=== PATIENT | female | born 1980 ===

== ENCOUNTER 2025-02-17 13:46 | Emergency (ER) | payer OTHER, SELFPAY ==
[2025-02-17 13:50] VITALS: BP 121/79; PULSE 97; RESP 20; TEMP 36.7; O2SAT 98; BMI 37.3
--- NOTE | 2025-02-17 16:13 | ED.GENADULT ---
HPI - General Adult General Chief complaint: Nausea/Vomiting Stated complaint: vomiting, anxiety Time Seen by Provider: 02/17/25 13:59 History of Present Illness HPI narrative: Pt reports hx of known cyclic vomiting. States current episode has been ongoing for 2 weeks. Went to ER in [facility] a few days ago for this. Then was seen at up in [facility] as well. Has an appt tomorrow with as well. Pt is very anxious and continues to have episodes of vomiting and anxiety. Symptoms only relieved by hot showers. Pt states she was given Xanax by which does help with her symptoms. 44-year-old woman presenting to the emergency department with concern of vomiting. Actually has not vomited today but still does not feel well. History of cyclic vomiting. Was initiated on BuSpar and alprazolam and duloxetine. hydroxyzine as well. 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 She has also had amputation now all of the left lower leg. She is getting use to these prosthetics. Has had to move now to [facility] area. Was seen at [facility] this last week for recurrent vomiting. She also gets severe epigastric pain which she associates with anxiety. She says is not the typical kind of pain. Admits that treating her anxiety would probably help pain and nausea. Today has only been dry heaving and overall improved in this regard better than she has been over the last couple of weeks. When she was seen in [facility] few days ago did have evaluation of her liver/gallbladder which was negative she reports. This did also include an ultrasound. Does have a long history of recurrent vomiting with extensive imaging without findings she reports Concurrently en route with significant other to [employer] her dog in [place]. Stopped here due to symptoms. Related Data Home Medications ?Medication ?Instructions ?Recorded ?Confirmed aripiprazole .ROUTE 02/17/25 buspirone .ROUTE 02/17/25 fluoxetine .ROUTE 02/17/25 lisinopril .ROUTE 02/17/25 metoprolol tartrate .ROUTE 02/17/25 omeprazole .ROUTE 02/17/25 Allergies Allergy/AdvReac Type Severity Reaction Status Date / Time acetaminophen (From Tylenol) Allergy Severe Anaphylaxis Verified 02/17/25 13:54 sulfamethoxazole (From Allergy Mild Verified 02/17/25 13:54 Bactrim) trimethoprim (From Bactrim) Allergy Mild Verified 02/17/25 13:54 Review of Systems Status of ROS: Reports: 6 or more systems reviewed and unremarkable except as noted in History and below Exam Narrative: Exam Narrative: Pleasant. Appears uncomfortable. Skin is warm and dry. She has a faint speckling to papular rash scattered over her torso. Some of this is on the thighs as well. Not particularly itchy but has been of concern. Bilateral [id number]-[id number] amputations. Abdomen is overweight soft. Tender mid abdomen, epigastrium. Lungs are clear. Heart in elevated rate and regular rhythm. Const: Vital Signs, click to edit/add: Vital Signs - 24 hr 02/17/25 13:50 Temperature 98.0 F Pulse Rate [Pulse Oximeter] 97 Respiratory Rate 20 Blood Pressure [Ri ght Upper Arm] 121/79 Pulse Oximetry 98 Oxygen Delivery Me thod Room Air Documenting provider has reviewed patient's vital signs: yes Course Vital Signs Vital signs: Initial Vital Signs Temperature 98.0 F 02/17/25 13:50 Temperature Source Temporal Artery Scan 02/17/25 13:50 Pulse Rate 97 02/17/25 13:50 Respiratory Rate 20 02/17/25 13:50 Blood Pressure 121/79 02/17/25 13:50 Blood Pressure Mean 93 02/17/25 13:50 Blood Pressure Position Sitting 02/17/25 13:50 Pulse Oximetry 98 02/17/25 13:50 Oxygen Delivery Method Room Air 02/17/25 13:50 Vital Signs Temperature 98.0 F 02/17/25 13:50 Pulse Rate 97 02/17/25 13:50 Respiratory Rate 20 02/17/25 13:50 Blood Pressure 121/79 02/17/25 13:50 Pulse Oximetry 98 02/17/25 13:50 Oxygen Delivery Method Room Air 02/17/25 13:50 Temperature 98.0 F 02/17/25 19:32 Pulse Rate 85 02/17/25 19:32 Respiratory Rate 20 02/17/25 19:32 Blood Pressure 118/84 02/17/25 19:32 Pulse Oximetry 98 02/17/25 19:31 Oxygen Delivery Method Room Air 02/17/25 19:31 Medications Administered Medications: Discontinued Medications Generic Name Dose Route Start Last Admin Trade Name Anabel PRN Reason Stop Dose Admin Sodium Chloride 1,000 mls @ 1,000 mls/hr 02/17/25 16:15 02/17/25 18:51 0.9 % Sodium Chloride 1000 Ml IV 02/17/25 17:14 Infused .Q1H ONE Infusion Lactated Ringer's 1,000 mls @ 1,000 mls/hr 02/17/25 17:19 02/17/25 18:51 Lactated Ringers 1000 Ml IV 02/17/25 18:18 Infused .Q1H ONE Infusion Ketorolac Tromethamine 30 mg 02/17/25 18:36 02/17/25 18:52 Ketorolac 30 Mg/Ml Inj IVP 02/17/25 18:37 30 mg ONCE ONE Administration Lidocaine/Aluminum/Magnesium/Simeth 30 ml 02/17/25 18:41 02/17/25 18:50 Gi Cocktail (Visc Lido/Antacid) 30 Ml PO 02/17/25 18:42 30 ml ONCE ONE Administration Lorazepam 1 mg 02/17/25 17:19 02/17/25 17:44 Lorazepam 1 Mg Tablet PO 02/17/25 17:20 1 mg ONCE ONE Administration Lorazepam 0.5 mg 02/17/25 18:41 02/17/25 18:51 Lorazepam 0.5 Mg Tablet PO 02/17/25 18:42 0.5 mg ONCE ONE Administration Olanzapine 5 mg 02/17/25 17:19 02/17/25 17:44 Olanzapine 5 Mg/Ml Inj IVP 02/17/25 17:20 5 mg ONCE ONE Administration Ondansetron HCl 4 mg 02/17/25 16:15 02/17/25 17:44 Ondansetron 2 Mg/Ml Inj IVP 02/17/25 16:16 4 mg ONCE ONE Administration Medical Decision Making [facility] Narrative Medical decision making narrative: Nonspecific rash but I wonder if might be stress or heat related. Can certainly help with symptoms here. Without extensive past medical would consider further evaluation, imaging or even cardiac workup. Symptoms sound to be known and typical. Will check chemistries though as sounds like these have been occasionally off. Initiated IV. Received IV fluids. Zofran, olanzapine, lorazepam. Was improved and then pain returned. Was given GI cocktail ketorolac and lorazepam. Overall improved during time in emergency department the still with some acceptable level of symptoms it appears Labs are reassuring. See patient discharge plan for further discussion Stay well-hydrated. Try to take your pills with a little bit of food in most cases. Slow advance of diet over the next 24-36 hours. Diluted juices, soup broth, rice, toast, crackers. Hopefully your stress can settle soon. Be seen for marked increase in persistent pain, intractable vomiting, associated fever. Prescribing you some Zofran for nausea from [facility]. Lab Data Lab results reviewed: Yes I reviewed the patient's lab results Labs: Lab Results 02/17/25 Range/Units 16:26 Sodium 132 L (135-149) mmol/L Potassium 3.3 L (3.6-5.1) mmol/L Chloride 91 L (96-114) mmol/L Carbon Dioxide 31 (20-32) mmol/L Anion Gap 10 (7-15) mEq/L BUN 23 (5-24) mg/dL Creatinine 1.2 (0.5-1.5) mg/dL Estimated Creat Clear 59.09 Estimated GFR 57 ml/min Glucose 175 H (60-115) mg/dL Calcium 9.9 (8.4-10.6) mg/dL Magnesium 2.0 (1.5-2.6) mg/dL Discharge Plan Discharge Clinical Impression: Hyperemesis, Abdominal pain Patient Disposition: Home w/ Parent or Adult Condition: Improved Additional Instructions: Stay well-hydrated. Try to take your pills with a little bit of food in most cases. Slow advance of diet over the next 24-36 hours. Diluted juices, soup broth, rice, toast, crackers. Hopefully your stress can settle soon. Be seen for marked increase in persistent pain, intractable vomiting, associated fever. Prescribing you some Zofran for nausea from [facility]. Prescriptions: No Action lisinopril .ROUTE metoprolol tartrate .ROUTE aripiprazole [Abilify] .ROUTE buspirone [BuSpar] .ROUTE fluoxetine .ROUTE omeprazole .ROUTE Follow Up/Referrals: Provider,Not a Local [Primary Care Provider, Family Practice] Stand Alone Forms: MyHealth Info Instructions
--- OUTSIDE RECORDS SUMMARY | 2025-02-17 16:41 | XMS_ITS | Clinical Summary ---
Author Organization [facility] Address [address], [place] [address] Care Team Providers Care Polisher Apprentice Name Role Phone Needs Pcp, Assignment Primary Care Provider Source Comments You are receiving this document as you are listed as the primary care provider,follow-up provider, or the patient has been referred to you for consultation.This is in compliance with the Medicare and[facility] EHR Incentive Program,which states Providers who transition their patient to another setting of careor provider of care or refers their patient to another provider of care shouldprovide summary care record for each transition of care or referral. allGreenup Allergies Active Allergy Reactions Criticality Noted Date Comments Acetaminophen Anaphylaxis High 02/08/2025 Sulfamethoxazole-Trimethoprim Itching 2024 Medications metoprolol tartrate (LOPRESSOR) 25 MG tablet Take 1 Tablet (25 mg) by mouth two times a day. Active lisinopril (ZESTRIL) 10 MG tablet Take 1 Tablet (10 mg) by mouth daily. Active omeprazole (PRILOSEC) 40 MG capsule Take 1 Capsule (40 mg) by mouth daily. Take 1 hour before a meal. Active atorvastatin (LIPITOR) 20 MG tablet Take 1 Tablet (20 mg) by mouth daily. Active hydrOXYzine HCl (ATARAX) 25 MG tablet Take 1 Tablet (25 mg) by mouth three times a day. Active DULoxetine (CYMBALTA) 60 MG delayed release capsule Take 1 Capsule (60 mg) by mouth daily. Active ARIPiprazole (ABILIFY) 2 MG tablet Take 1 Tablet (2 mg) by mouth daily. Active calcium carbonate 600 MG tablet Take 2 Tablets (1,200 mg) by mouth daily. Active multivitamin with minerals tablet Take 1 Tablet by mouth daily. Active traMADol (ULTRAM) 50 MG tablet Take 1 Tablet (50 mg) by mouth every 6 hours as needed for Pain. Active baclofen (LIORESAL) 10 MG tablet Take 1 Tablet (10 mg) by mouth two times daily as needed. Active Imipramine Pamoate (TOFRANIL-PM) 150 MG capsule Take 1 Capsule (150 mg) by mouth every evening. Active busPIRone (BUSPAR) 10 MG tablet Take 1 Tablet (10 mg) by mouth two times a day. 60 Tablet 1 02/09/2025 1:37 PM CDT 02/09/2025 Active ALPRAZolam (XANAX) 0.5 MG tabletIndicatio ns:ANTONIO (generalized anxiety disorder) (HRC) Take 1 Tablet (0.5 mg) by mouth two times daily as needed for Anxiety. 15 Tablet 02/14/2025 Active Active Problems Problem Noted Date Diagnosed Date Dehydration 02/08/2025 Abdominal pain, generalized 02/08/2025 Endometrial polyp 02/07/2024 Overview (02/14/2025): Noted on US - 0.9 x 0.5 cm. Prior polyp removed with hysteroscopic D&C 06/2015, Dr Rangel Obesity, Class II, BMI 35-39.9 01/15/2024 Human papillomavirus (HPV) t ype 16 DNA detected in cervical specimen 01/07/2024 Menorrhagia with regular cycle 01/07/2024 Post traumatic stress disorder (PTSD) 11/04/2023 Status post bariatric surgery 09/03/2023 S/P laparoscopic sleeve gastrectomy 09/03/2023 Postgastrectomy malabsorption 09/03/2023 Below knee amputation, traumatic 12/18/2022 History of right below knee amputation Psychological factors affecting morbid obesity 0 12/18/2022 Gastroesophageal reflux disease without esophagi tis 01/23/2022 Uterine fibroid 01/23/2022 Overview (02/14/2025): US 02/07/24 right sided IM fibroid - 3.5 x 2.7 x 3.1 cm History of left below knee amputation 11/02/2020 Type 2 diabetes mellitus wit h foot ulcer, without long-term current use of insulin 03/12/2019 ANTONIO (generalized anxiety disorder) 02/19/2019 Stress incontinence, female 02/19/2019 Type 2 diabetes, controlled, with neuropathy 09/2018 Major depressive disorder, recurrent episode, mi ld 06/21/2015 Chronic inflammatory demyeli nating disease of peripheral nervous system and central nervous system 05/09/2014 Essential hypertension 10/06/2012 Overview (02/08/2025): Identified By: Maryjane Smith Encounters Date Type Department Care Team Description 02/14/2025 11:40 AM CDT Lab Visit [facility] [address] [facility] [place], [place] [id number] Abdominal pain, unspecified abdominal location; Nausea and vomiting, unspecified vomiting type 02/14/2025 11:20 AM CDT Office Visit [facility] [place] [id number] [facility]. [place], [place] [id number] Mike Michele MD ANTONIO (generalized anxiety disorder) ([facility]); Abdominal pain, unspecified abdominal location; Nausea and vomiting, unspecified vomiting type; Hyponatremia; Hypokalemia; Thrombocytosis; Elevated serum creatinine 02/14/2025 Telephone [facility] [address] [place], [place] [phone] Needs Pcp, Assignment LAB RESULTS 02/14/2025 Nurse Triage [facility] [address] [place] [address] Needs Pcp, Assignment ANXIETY 02/08/2025 5:45 AM CDT - 02/09/2025 1:34 PM CDT Hospital Encounter [facility] [address] [place] [address] Jagdeep Gurrola MD Nguyen, Catherine Q, DO Daleiden, Christian M, MD ANTONIO (generalized anxiety disorder) (HRC) (Primary Dx); Uterine leiomyoma, unspecified location; Lower abdominal pain; Vomiting, unspecified vomiting type, unspecified whether nausea present Discharge Disposition: Home from Last 3 Months Social History Tobacco Use Types Packs/Day Years Used Date Smoking Tobacco: Never Assessed Humiliation, Afraid, Rape, and Kick questionnair e Answer Date Recorded Within the last year, have y ou been afraid of your partner or ex-partner? No 02/08/2025 Within the last year, have y ou been humiliated or emotionally abused in other ways by your partner or ex-partner? No Within the last year, have y ou been kicked, hit, slapped, or otherwise physically hurt by your partner or ex-partner? No 02/08/2025 Within the last year, have y ou been raped or forced to have any kind of sexual activity by your partner or ex-partner? No 02/08/2025 Comments Unknown Sex and Gender Information Value Date Recorded Sex Assigned at Not on file Legal Sex Female 5:45 AM CDT Gender Identity Not on file Sexual Orientation Not on file Last Filed Vital Signs Vital Sign Reading Time Taken Comments Blood Pressure 127/72 02/14/2025 11:12 AM CDT Pulse 95 02/14/2025 11:12 AM CDT Temperature 36.3 C (97.3 F) 02/14/2025 11:12 AM CDT Respiratory Rate 20 02/14/2025 11:12 AM CDT Oxygen Saturation 99% 02/14/2025 11:12 AM CDT Inhaled Oxygen Concentration - - Weight - - Height - - Body Mass Index - - Plan of Treatment Upcoming Encounters Date Type Department Care Team (Late st Contact Info) Description 02/22/2025 8:00 AM CDT Appointment [place] [id number] [facility] Medicine [address] [facility] [place], [place] [phone] Arlene Hines, RUBBER WORKER, [employer] [address] [place] [address] Health Maintenance Due Date Last Done Comments Cervical Cancer Screening Due 1978 Colon Cancer Screening Plan Due 1978 Diabetes: Eye Exam 1978 Diabetes: Foot Exam 1978 Diabetes: Lipid Panel 1978 Diabetes: Urine Microalbumin 1978 Hep C Screening (Preventive Services) 1978 HIV Screening (Preventive Services) 1994 Adult Preventive Visit 1996 HepB Vaccine (1) 1997 COVID-19 Vaccine (4 - season) 2024 01/23/2022, 06/06/2021, 05/12/2021 Pneumococcal Vaccine (3 of 3 - PCV) 11/06/2024 11/06/2019, 03/12/2019 Influenza Vaccine (Season Ended) 2025 08/07/2020, 10/28/2019 Diabetes: HGBA1C 08/12/2025 02/09/2025, 07/01/2024 Mammogram 08/19/2025 08/19/2024, 07/07, 04/17/2022, Additional history exists Diabetes: Creatinine 02/14/2026 02/14/2025, 02/09/2025, 02/08/2025 DTaP/Tdap/Td Vaccine (8 - Tdap) 06/23/2028 06/23/2018, 10/03/2007, 07/09/2003, Additional history exists Zoster/Shingles Vaccine (1 of 2) 2028 IPV (Polio) Vaccine Completed 06/29/1983, 04/14/1980, 04/07/1979, Additional history exists HepA Vaccine Aged Out No longer eligi ble based on patient's age to complete this topic Hib Vaccine Aged Out No longer eligi ble based on patient's age to complete this topic MCV4 Vaccine Aged Out No longer eligi ble based on patient's age to complete this topic Meningococcal B Vaccine Aged Out No l onger eligible based on patient's age to complete this topic Procedures Procedure Name Priority Date/Time Associated Diagnosis Comments RBC AND PLATELET MORPHOLOGY STAT 02/14/2025 11:39 AM CDT Abdominal pain, unspecified abdominal location Nausea and vomiting, unspecified vomiting type COMPLETE BLOOD COUNT-W/DIFF STAT 02/14/2025 11:39 AM CDT Abdominal pain, unspecified abdominal location Nausea and vomiting, unspecified vomiting type BASIC METABOLIC PANEL STAT 02/14/2025 11:39 AM CDT Abdominal pain, unspecified abdominal location Nausea and vomiting, unspecified vomiting type CBC AND DIFFERENTIAL PANEL STAT 02/14/2025 11:39 AM CDT Abdominal pain, unspecified abdominal location Nausea and vomiting, unspecified vomiting type GLUCOSE, WHOLE BLOOD POCT Routine 02/09/2025 7:59 AM CDT HGB A1C Add-On 02/09/2025 6:29 AM CDT COMPLETE BLOOD COUNT-NO DIFF Routine 02/09/2025 6:29 AM CDT BASIC METABOLIC PANEL Routine 02/09/2025 6:29 AM CDT BLOOD CULTURE STAT 02/08/2025 3:31 PM CDT BLOOD CULTURE STAT 02/08/2025 3:31 PM CDT MOLECULAR BLOOD CULTURE IDENTIFICATION STAT 02/08/2025 2:39 PM CDT BLOOD CULTURE Routine 02/08/2025 2:39 PM CDT BLOOD CULTURE Routine 02/08/2025 2:39 PM CDT D DIMER, QUANTITATIVE Routine 02/08/2025 2:39 PM CDT PROCALCITONIN Routine 02/08/2025 2:39 PM CDT US PELVIC COMPLETE WO EV STAT 02/08/2025 11:19 AM CDT US ABD LTD GALLBLADDER ONLY STAT 02/08/2025 11:13 AM CDT LACTATE 2 HOUR Specified Time 02/08/2025 8:[address] ABD PELVIS W IV CONT ONLY STAT 02/08/2025 7:42 AM CDT EXTRA BLUE TOP TUBE Routine 02/08/2025 6 :32 AM CDT BRAIN NATRIURETIC PEPTIDE (BNP) STAT Add-On 02/08/2025 6:31 AM CDT HS-TROPONIN I (NO REFLEX) STAT Add-On 02/08/2025 6:31 AM CDT LACTATE REFLEX PANEL Add-On 02/08/2025 6:31 AM CDT HCG,QUALITATIVE, SERUM STAT 02/08/2025 6:31 AM CDT COMPLETE BLOOD COUNT-W/DIFF STAT 02/08/2025 6:31 AM CDT LIPASE STAT 02/08/2025 6:31 AM CDT COMPREHENSIVE METABOLIC PANEL STAT 02/08/2025 6:31 AM CDT CBC AND DIFFERENTIAL PANEL STAT 02/08/2025 6:31 AM CDT ECG 12 LEAD INPATIENT STAT 02/08/2025 6:03 AM CDT UA CONDITIONAL UC STAT Add-On 02/08/2025 5:5 2 AM CDT EXTRA URINE TUBE Routine 02/08/2025 5:52 AM CDT from Last 3 Months Results * (ABNORMAL) Morphology-RBC and Platelet (02/14/2025 11:39 AM CDT) RBC Morphology Reviewed 02/14/2025 12:03 PM CDT [facility] [address] LABORATORY Platelet Estimate Increased(A) Adequate 02/14/2025 12:03 PM CDT [place] [address] [facility]ORY Blood Venipuncture / Unknown 02/14/2025 11:39 AM CDT 02/14/2025 11:39 AM CDT Mike Michele MD LAB_1 Final Result [place] [address] [facility] [address] [place] [address], [facility] * (ABNORMAL) Complete Blood Count-W/Diff (02/14/2025 11:39 AM CDT) Only the most recent of2 resultswithin the time period is included. WBC 14.6(H) 3.5 - 10.5 x10(9)/L 02/14/2025 12:03 PM T [place] [address] LAB[facility]ATORY RBC 4.68 3.90 - 5.03 x10(12)/L 02/14/2025 12:03 PM [place] [address] [facility]ORY Hemoglobin 14.2 12.0 - 15.5 g/dL 02/14/2025 12:03 PM [place] [address] [facility] HCT 40.2 34.9 - 44.5 % 02/14/2025 12:03 PM [place] [address] [facility] MCV 85.9 80.0 - 100.0 fL 02/14/2025 12:03 PM [place] [address] [facility] MCH 30.3 27.6 - 33.3 pg 02/14/2025 12:03 PM [place] [address] [facility] MCHC 35.3(H) 31.5 - 35.2 g/dL 02/14/2025 12:03 PM [place] [address] [facility] RDW 12.1 11.9 - 15.5 % 02/14/2025 12:03 PM [place] [address] [facility] Platelets 544(H) 150 - 450 x10(9)/L 02/14/2025 12:03 PM [place] [address] [facility] Automated NRBC 0 <=0 /100 WBC 02/14/2025 12:03 PM [place] [address] [facility] Neutrophil Absolute 9.7(H) 1.7 - 7.0 10(9)/L 02/14/2025 12:03 PM T [place] [address] [facility] Lymphocyte Absolute 2.5 1.0 - 4.8 10(9)/L 02/14/2025 12:03 PM T [place] [address] [facility] Monocyte Absolute 2.0(H) 0.2 - 0.9 10(9)/L 02/14/2025 12:03 PM [place] [address] [facility] Eosinophil Absolute 0.2 0.0 - 0.5 10(9)/L 02/14/2025 12:03 PM [place] [address] [facility] Basophil Absolute 0.1 0.0 - 0.3 10(9)/L 02/14/2025 12:03 PM [place] [address] [facility] Immature Granulocyte % 0.5 0.0 - 0.5 % 02/14/2025 12:03 PM [place] [address] [facility] Blood Venipuncture / Unknown 02/14/2025 11:39 AM CDT 02/14/2025 11:39 AM CDT us Mike Michele MD LAB_1 Final Result Performing Organization Address City/State/[facility] Co de Phone Number [address] [address], [facility] * (ABNORMAL) Basic Metabolic Panel (02/14/2025 11:39 AM CDT) Only the most recent of2 resultswithin the time period is included. Sodium 131(L) 136 - 145 mmol/L 02/14/2025 11:57 AM [place] [address] [facility] Potassium 3.3(L) 3.5 - 5.1 mmol/L 02/14/2025 11:57 AM [place] [address] [facility] Chloride 94(L) 98 - 109 mmol/L 02/14/2025 11:57 AM [place] [address] [facility] CO2 23 20 - 29 mmol/L 02/14/2025 11:57 AM [place] [address] [facility] Anion Gap 14 6 - 16 mmol/L 02/14/2025 11:57 AM CDT [place] [address] [facility] Calcium 10.5(H) 8.4 - 10.4 mg/dL 02/14/2025 11:57 AM CDT [place] [address] [facility] Comment:Low serum albumin ma y artificially lower total calcium, without impacting ionized calcium concentrations. If patient has or is at risk for hypoalbuminemia, consider ionized serum calcium to more accurately assess calcium status. BUN 15 7 - 26 mg/dL 02/14/2025 11:57 AM CDT [place] [address] [facility] Creatinine 1.73(H) 0.55 - 1.02 mg/dL 02/14/2025 11:57 AM CDT [place] [address] [facility] Glucose 194(H) 70 - 100 mg/dL 02/14/2025 11:57 AM T [place] [address] [facility] Comment:The given reference range is for the fasting state. Non-fasting reference range for glucose is 70 - 180 mg/dL. GFR, Estimated 37(L) >60 mL/min/1. 73m2 02/14/2025 11:57 AM T [place] [address] [facility] Hours Fasting 0.1 8 - 12 Hours 02/14/2025 11:57 AM T [place] [address] [facility] Comment:Lab unable to obtain patient's fasting status at time of specimen collection. Blood Venipuncture / Unknown 02/14/2025 11:39 AM CDT 02/14/2025 11:39 AM CDT us Mike Michele MD LAB_1 Final Result Performing Organization Address City/State/[facility] Phone Number [place] [address] [facility] [place] [address], [facility] * (ABNORMAL) Glucose, Whole Blood POCT (02/09/2025 7:59 AM CDT) Glucose, Whole Blood 258(H) 70 - 180 mg/dL 02/09/2025 8:00 AM CDT [facility] Performing Location [place] 4W 02/09/2025 8:00 AM CDT [facility] Blood 02/09/2025 7:59 AM CDT 02/09/2025 8:00 AM CDT us Juan Hernandez MD LAB_1 Final Re sult Performing Organization Address [facility] Co de Phone Number [facility] [address] * (ABNORMAL) Complete Blood Count-No Diff (02/09/2025 6:29 AM CDT) WBC 11.9(H) 3.5 - 10.5 x10(9)/L 02/09/2025 7:20 AM CDT [facility] RBC 4.19 3.90 - 5.03 x10(12)/L 02/09/2025 7:20 AM CDT [facility] Hemoglobin 12.7 12.0 - 15.5 g/dL 02/09/2025 7:20 AM CDT [facility] HCT 37.8 34.9 - 44.5 % 02/09/2025 7:20 AM CDT [facility] MCV 90.2 80.0 - 100.0 fL 02/09/2025 7:20 AM CDT [facility] MCH 30.3 27.6 - 33.3 pg 02/09/2025 7:20 AM CDT [facility] MCHC 33.6 31.5 - 35.2 g/dL 02/09/2025 7:20 AM CDT [facility] RDW 12.7 11.9 - 15.5 % 02/09/2025 7:20 AM CDT [facility] Platelets 382 150 - 450 x10(9)/L 02/09/2025 7:20 AM CDT [facility] Automated NRBC 0 <=0 /100 WBC 02/09/2025 7:20 AM CDT [facility] Blood Venipuncture / Unknown 02/09/2025 6:29 AM CDT 02/09/2025 7:15 AM CDT us Nasreen Rose DO LAB_1 Final Resu lt Performing Organization Address [facility]/ZIP Co de Phone Number [facility] [address] * (ABNORMAL) Hgb A1C (02/09/2025 6:29 AM CDT) Hemoglobin A1C 5.7(H) <=5.6 % 02/09/2025 10:31 AM CDT [facility] Estimated Average Glucose (Calc) 117 < 117 mg/dL 02/09/2025 10:31 AM CDT [facility] Comment:Estimated average gl ucose (eAG) converts A1c into glucose units (mg/dL) and estimates average glucose over the past approximately 3 months. The eAG reference interval (<117 mg/dL) corresponds to an A1c of <5.7%. Blood Venipuncture / Unknown 02/09/2025 6:29 AM CDT 02/09/2025 7:15 AM CDT Narrative [facility] - 02/09/2025 10:31 AM CDT For patients not previously diagnosed with diabetes: 5.7-6.4%: Increased risk for diabetes 6.5% and greater: Diagnostic for diabetes For patients diagnosed with diabetes: <8.0%: Goal of therapy for ages 18-75 Clinicians may recommend a higher or lower goal for specific individuals. us Juan Hernandez MD LAB_1 Final Re sult [facility] [address] * Blood Culture (02/08/2025 3:31 PM CDT) Only the most recent of2 resultswithin the time period is included. Blood Culture No Growth at 5 Days LAB ETEST METHOD 02/13/2025 10:02 PM CDT [facility] Blood VENIPUNCTURE / Unknown Venipuncture / Unknown 02/08/2025 3:31 PM CDT 02/08/2025 3:36 PM CDT Nasreen Rose DO LAB_1 Final Resu lt Performing Organization Address City/[facility]/[place] [address], [facility] * (ABNORMAL) Molecular Blood Culture Identification (02/08/2025 2:39 PM CDT) [facility] Molecular Identification Staphylococcus epidermidis Detected(A) (none) MOLECULAR BLOOD CULTURE IDENTIFICATION 3:00 PM CDT [facility] Blood VENIPUNCTURE / Unknown Venipuncture / Unknown 02/08/2025 2:39 PM CDT 02/08/2025 2:44 PM CDT Nasreen Rose DO LAB_1 Final Resu lt Performing Organization Address [facility]/ZIP Co de Phone Number [address] * Procalcitonin (02/08/2025 2:39 PM CDT) [facility] Procalcitonin 0.02 <=0.24 ng/mL 02/08/2025 3:33 PM CDT [facility] Blood Venipuncture / Unknown 02/08/2025 2:39 PM CDT 02/08/2025 2:44 PM CDT Narrative [facility] - 02/08/2025 3:33 PM CDT Suspected Lower Respiratory Tract Infection (Positive imaging and respiratory symptoms present): < 0.24: Suggests non-bacterial infection. 0.25-0.49: Bacterial infection possible. Consider causes of false elevations such as CKD. >= 0.50: Suggestive of bacterial infection. Consider causes of false elevations. Clinicians should use these results in conjunction with other laboratory findings and clinical signs. Nasreen Rose DO LAB_1 Final Resu lt [facility] [address] [place] [address], [facility] * D Dimer (02/08/2025 2:39 PM CDT) [facility] D Dimer, Quant <0.27 <=0.50 ug/mL FEU 02/08/2025 3:08 PM CDT [facility] Blood Venipuncture / Unknown 02/08/2025 2:39 PM CDT 02/08/2025 2:44 PM CDT Narrative [facility] - 02/08/2025 3:08 PM CDT A D-dimer level <=0.50 ug/mL FEU in a patient with a low clinical pretest probability for a 1st episode of DVT can rule out lower extremity DVT (rate of DVT in next 3 months < 2%). For patients greater than 50 years of age, the application of age-adjusted cut- off values for D-Dimer may increase the specificity without significant effect on sensitivity. The results in this laboratory are reported as ug/mL FEU. The calculation for age adjusted cut off in ug/mL FEU = age in years x 0.01 ug/mL FEU. For example, the cut off for a 76 year old male is 76 x 0.01 ug/mL FEU = <=0.76 ug/mL FEU. Increased D-dimer is seen in thromboembolism, DIC, liver disease, renal disease, cardiac infarct and failure, cancer, , stroke, infection, recent surgery, hemorrhage and age > 70 years. D-dimer levels decrease with anticoagulation therapy and increasing clot age. us Nasreen Dion SanchezRose DO LAB_1 Final Resu lt [facility] [address] [employer] [address] * US Pelvic Complete WO EV (02/08/2025 11:19 AM CDT) Anatomical Region Laterality Modality Pelvis Ultrasound 02/08/2025 10:5 4 AM CDT Impressions 02/08/2025 11:25 AM CDT 1. Uterine fibroid. Otherwise unremarkable. Narrative 02/08/2025 11:25 AM CDT COMPARISON: None. TECHNIQUE: Transabdominal imaging was performed. FINDINGS: Uterus: Measures 8.6 x 5.1 x 5.1 cm. Uterine Volume: 117.1 ml. There is a fibroid measuring up to 3.7 cm.. Endometrium: Measures up to 0.3 cm in thickness. Right Ovary: Measures 3.0 x 1.7 x 2.1 cm and appears unremarkable Right Ovary Blood Flow: Present. Left Ovary: Measures 4.0 x 2.2 x 3.4 cm and appears unremarkable Left Ovary Blood Flow: Present. Free Fluid: no significant free fluid. No suspicious adnexal masses. Procedure Note Yobani Cruz MD - 02/08/2025 COMPARISON: None. TECHNIQUE: Transabdominal imaging was performed. FINDINGS: Uterus: Measures 8.6 x 5.1 x 5.1 cm. Uterine Volume: 117.1 ml. There is afibroid measuring up to 3.7 cm.. Endometrium: Measures up to 0.3 cm in thickness. Right Ovary: Measures 3.0 x 1.7 x 2.1 cm and appears unremarkable Right Ovary Blood Flow: Present. Left Ovary: Measures 4.0 x 2.2 x 3.4 cm and appears unremarkable Left Ovary Blood Flow: Present. Free Fluid: no significant free fluid. No suspicious adnexal masses. IMPRESSION 1. Uterine fibroid. Otherwise unremarkable. us Jagdeep Gurrola MD RAD US Final Resu lt * US Abd Ltd Gallbladder Only (02/08/2025 11:13 AM CDT) Anatomical Region Laterality Modality Abdomen Ultrasound 02/08/2025 10:5 4 AM CDT Impressions 02/08/2025 11:24 AM CDT Gallbladder is unremarkable. Narrative 02/08/2025 11:24 AM CDT COMPARISON: CT abdomen scan done 02/08/2025. TECHNIQUE: Limited gallbladder ultrasound following a recent CT abdomen scan done. FINDINGS: GALLBLADDER: No stones, sludge, wall thickening, or pericholecystic fluid. SONOGRAPHIC RABAGO'S SIGN: Negative CBD:0.4 cm. Procedure Note Yobani Cruz MD - 02/08/2025 COMPARISON: CT abdomen scan done 02/08/2025. TECHNIQUE: Limited gallbladder ultrasound following a recent CT abdomenscan done. FINDINGS: GALLBLADDER: No stones, sludge, wall thickening, or pericholecysticfluid. SONOGRAPHIC RABAGO'S SIGN: Negative CBD:0.4 cm. IMPRESSION Gallbladder is unremarkable. us Jagdeep Gurrola MD RAD US Final Resu lt * Lactate 2 Hour (02/08/2025 8:27 AM CDT) Lactate, 2 Hour 1.6 0.5 - 2.0 mmol/L 02/08/2025 9:00 AM CDT [facility] Comment:Specimen grossly hem olyzed. Hemolysis may affect result. Blood Venipuncture / Unknown 02/08/2025 8:27 AM CDT 02/08/2025 8:35 AM CDT Narrative [facility] - 02/08/2025 9:00 AM CDT Reference range for healthy individuals when sepsis is not suspected is 0.5-2.2 mmol/L us Jagdeep Gurrola MD LAB_1 Final Resu lt [facility] [address] [address] * CT Abd Pelvis W IV Cont Only (02/08/2025 7:42 AM CDT) Anatomical Region Laterality Modality Abdomen, Pelvis Computed Tomogra phy 02/08/2025 7:29 AM CDT Impressions 02/08/2025 7:54 AM CDT 1. No acute findings in the abdomen or pelvis. 2. Punctate 2 mm nonobstructing calyceal calculus in the right kidney. Narrative 02/08/2025 7:54 AM CDT COMPARISON: None. TECHNIQUE: Images were obtained through the abdomen and pelvis following the administration of 100 mL IOHEXOL 350 MG/ML IV SOLN IV contrast. FINDINGS: LOWER CHEST: Unremarkable. LIVER: Minimal focal fatty infiltration in the liver along the false form ligament. GALLBLADDER AND BILIARY TREE: Unremarkable. No intrahepatic or extrahepatic biliary ductal dilation. PANCREAS: Unremarkable. SPLEEN: Unremarkable. ADRENALS: Unremarkable. KIDNEYS, URETERS, AND BLADDER: 1.0 cm cyst at the upper pole the right kidney. There are additional subcentimeter hypodensities in the right kidney which are too small to characterize and probably cysts. Punctate nonobstructing calyceal calculus in the right kidney. No hydronephrosis. Unremarkable bladder. VESSELS: No abdominal aortic aneurysm. BOWEL: Gastric sleeve changes. No dilated loops of bowel. No inflammatory changes or obstruction. No evidence for appendicitis. REPRODUCTIVE ORGANS: Intrauterine contraceptive device noted within the uterus centrally. Incidental 2.6 cm cyst in the left adnexa likely a dominant follicle. MESENTERY/PERITONEUM: No enlarged mesenteric lymph nodes. No ascites or free air. No focal fluid collection. RETROPERITONEUM: No adenopathy. ABDOMINAL WALL/SOFT TISSUES: Tiny fat-containing umbilical hernia. BONES: Unremarkable. Procedure Note Luiz Matias MD - 02/08/2025 COMPARISON: None. TECHNIQUE: Images were obtained through the abdomen and pelvis followingthe administration of 100 mL IOHEXOL 350 MG/ML IV SOLN IV contrast. FINDINGS: LOWER CHEST: Unremarkable. LIVER: Minimal focal fatty infiltration in the liver along the false formligament. GALLBLADDER AND BILIARY TREE: Unremarkable. No intrahepatic orextrahepatic biliary ductal dilation. PANCREAS: Unremarkable. SPLEEN: Unremarkable. ADRENALS: Unremarkable. KIDNEYS, URETERS, AND BLADDER: 1.0 cm cyst at the upper pole the rightkidney. There are additional subcentimeter hypodensities in the rightkidney which are too small to characterize and probably cysts. Punctatenonobstructing calyceal calculus in the right kidney. No hydronephrosis.Unremarkable bladder. VESSELS: No abdominal aortic aneurysm. BOWEL: Gastric sleeve changes. No dilated loops of bowel. No inflammatorychanges or obstruction. No evidence for appendicitis. REPRODUCTIVE ORGANS: Intrauterine contraceptive device noted within theuterus centrally. Incidental 2.6 cm cyst in the left adnexa likely adominant follicle. MESENTERY/PERITONEUM: No enlarged mesenteric lymph nodes. No ascites orfree air. No focal fluid collection. RETROPERITONEUM: No adenopathy. ABDOMINAL WALL/SOFT TISSUES: Tiny fat-containing umbilical hernia. BONES: Unremarkable. IMPRESSION 1. No acute findings in the abdomen or pelvis. 2. Punctate 2 mm nonobstructing calyceal calculus in the right kidney. us Jagdeep Gurrola MD RAD CT Final Resu lt * Extra Blue top tube (02/08/2025 6:32 AM CDT) Extra Blue Top Drawn Specimen will be held for 24 hours 02/08/2025 8:00 AM CDT [facility] Blood Venipuncture / Unknown 02/08/2025 6:32 AM CDT 02/08/2025 6:36 AM CDT us Jagdeep Gurrola MD LAB_1 Final Resu lt Performing Organization Address [facility] Phone Number [facility] [address] [place] [address] * (ABNORMAL) Lactate Reflex Panel (02/08/2025 6:31 AM CDT) Pathologist [facility] Lactate 2.3(H) 0.5 - 2.0 mmol/L 02/08/2025 7:14 AM CDT [facility] Blood Venipuncture / Unknown 02/08/2025 6:31 AM CDT 02/08/2025 6:36 AM CDT Narrative [facility] - 02/08/2025 7:14 AM CDT Reference range for healthy individuals when sepsis is not suspected is 0.5-2.2 mmol/L us Jagdeep Gurrola MD LAB_1 Final Resu Performing Organization Address [facility] Phone Number [facility] [address] [place] [address] * hs-troponin i (no reflex) (02/08/2025 6:31 AM CDT) [facility] hs-troponin i 3 <=14 ng/L 02/08/2025 7:25 AM CDT [facility] Blood Venipuncture / Unknown 02/08/2025 6:31 AM CDT 02/08/2025 6:36 AM CDT us Jagdeep Gurrola MD LAB_1 Final Resu Performing Organization Address [facility] de Phone Number [facility] [address] [place] [address] * B-Type Natriuretic Peptide (02/08/2025 6:31 AM CDT) Pathologist [facility] B Type Natr. Peptide 11 <=99 pg/mL 02/08/2025 9:48 AM CDT [facility] Blood Venipuncture / Unknown 02/08/2025 6:31 AM CDT 02/08/2025 6:36 AM CDT us Jagdeep Gurrola MD LAB_1 Final Resu lt [facility] [address] [employer] [address] * (ABNORMAL) Comp Metabolic Panel (02/08/2025 6:31 AM CDT) Sodium 133(L) 136 - 145 mmol/L 02/08/2025 7:08 AM CDT [facility] Potassium 3.7 3.5 - 5.1 mmol/L 02/08/2025 7:08 AM CDT [facility] Chloride 94(L) 98 - 109 mmol/L 02/08/2025 7:08 AM CDT [facility] CO2 24 20 - 29 mmol/L 02/08/2025 7:08 AM CDT [facility] Anion Gap 15 6 - 16 mmol/L 02/08/2025 7:08 AM CDT [facility] Calcium 10.9(H) 8.4 - 10.4 mg/dL 02/08/2025 7:08 AM CDT [facility] Comment:Low serum albumin ma y artificially lower total calcium, without impacting ionized calcium concentrations. If patient has or is at risk for hypoalbuminemia, consider ionized serum calcium to more accurately assess calcium status. BUN 15 7 - 26 mg/dL 02/08/2025 7:08 AM CDT [facility] Creatinine 0.95 0.55 - 1.02 mg/dL 02/08/2025 7:08 AM CDT [facility] Alkaline Phosphatase 98 40 - 150 U/L 02/08/2025 7:08 AM CDT [facility] AST (SGOT) 37 10 - 40 U/L 02/08/2025 7:08 AM CDT [facility] ALT (SGPT) 40 0 - 55 U/L 02/08/2025 7:08 AM CDT [facility] Bilirubin, Total 1.3(H) 0.2 - 1.2 mg/dL 02/08/2025 7:08 AM CDT [facility] Protein, Total 9.1(H) 6.4 - 8.3 g/dL 02/08/2025 7:08 AM CDT [facility] Albumin 4.8 3.5 - 5.0 g/dL 02/08/2025 7:08 AM CDT [facility] Glucose 221(H) 70 - 100 mg/dL 02/08/2025 7:08 AM CDT [facility] Comment:The given reference range is for the fasting state. Non-fasting reference range for glucose is 70 - 180 mg/dL. GFR, Estimated >60 >60 mL/min/1. 73m2 02/08/2025 7:08 AM CDT [facility] Blood Venipuncture / Unknown 02/08/2025 6:31 AM CDT 02/08/2025 6:36 AM CDT Jagdeep Gurrola MD LAB_1 Final Resu lt Performing Organization Address [facility] de Phone Number [facility] [address] * HCG, QUALitative, Serum (02/08/2025 6:31 AM CDT) HCG, Serum Qual Negative Negative 02/08/2025 7:11 AM CDT [facility] Blood Venipuncture / Unknown 02/08/2025 6:31 AM CDT 02/08/2025 6:36 AM CDT us Jagdeep Gurrola MD LAB_1 Final Resu lt Performing Organization Address City/[facility]/ZIP Co de Phone Number [facility] [address] * Lipase (02/08/2025 6:31 AM CDT) Lipase 24 <=60 U/L 02/08/2025 7:08 AM CDT [facility] Blood Venipuncture / Unknown 02/08/2025 6:31 AM CDT 02/08/2025 6:36 AM CDT us Jagdeep Gurrola MD LAB_1 Final Resu lt Performing Organization Address [facility] de Phone Number [facility] [address] * ECG 12 Lead (02/08/2025 6:03 AM CDT) Ventricular Rate 104 BPM [facility] Atrial Rate 104 BPM [facility] P-R Interval 138 ms [facility] QRS Duration 78 ms M[facility] QT 366 ms MUSE [facility] QTC 481 ms MUSE [facility] P [place] 60 degrees MUSE GHP R [place] 26 degrees MUSE GHP T [place] 29 degrees MUSE GHP 02/08/2025 6:03 AM CDT Narrative [facility] - 02/08/2025 3:43 PM CDT Sinus tachycardia Low voltage QRS Borderline ECG No previous ECGs available Confirmed by Jagdeep Gurrola ([id number]) on 02/08/2025 3:43:34 PM Procedure Note Jagdeep Gurrola MD - 02/08/2025 Sinus tachycardia Low voltage QRS Borderline ECG No previous ECGs available Confirmed by Jagdeep Gurrola ([id number]) on 02/08/2025 3:43:34 PM us Jagdeep Gurrola MD PN ECG ORDERABLES Final Re sult Performing Organization Address [place]/[facility] de Phone Number [facility] [address] [place] [address] * Extra Urine Tube (02/08/2025 5:52 AM CDT) Extra Urine Tube Specimen will be held for 24 hours 02/08/2025 7:00 AM CDT [facility] Urine URINE SPECIMEN COLLECTION, CLEAN CATCH / Unknown Non-blood Collection / Unknown 02/08/2025 5:52 AM CDT 02/08/2025 5:56 AM CDT us Jagdeep Gurrola MD LAB_1 Final Resu lt Performing Organization Address [facility] Co de Phone Number [facility] [address] [place], [place] [address] * (ABNORMAL) UA Conditional UC: Clean Catch (02/08/2025 5:52 AM CDT) Urine Culture Comment Urinalysis results do not meet criteria for urine culture reflex. 02/08/2025 8:10 AM CDT [facility] Urine Color Dark-Hankamer 02/08/2025 8:10 AM CDT [facility] Urine Clarity Extra Turbid(A) Clear 02/08/2025 8:10 AM CDT [facility] Specific [place], Urine 1.031(H) <1.030 02/08/2025 8:10 AM CDT [facility] PH Urine 5.5 5.0 - 8.0 02/08/2025 8:10 AM CDT [facility] Protein 100(A) Negative, 10 , 20 mg/dL 02/08/2025 8:10 AM CDT [facility] Glucose 200(A) Normal (Negative), 30 , 50 mg/dL 02/08/2025 8:10 AM CDT [facility] Ketones 10(A) Negative, Trace mg/dL 02/08/2025 8:10 AM CDT [facility] Urobilinogen 2.0(A) Normal (Negative) EU/dL 02/08/2025 8:10 AM CDT [facility] Bilirubin Negative Negative mg/dL 02/08/2025 8:10 AM CDT [facility] Blood, Urine (mg/dL) Negative Negative, 0.03 (Trace) 02/08/2025 8:10 AM CDT [facility] Nitrite Urine Negative Negative 02/08/2025 8:10 AM CDT [facility] Leukocyte Esterase 25 (Trace) Negative, 25 (Trace) AYLEEN/uL 02/08/2025 8:10 AM CDT [facility] Red Blood Cells 13(H) 0 - 3 /HPF 8:10 AM CDT [facility] White Blood Cells 3 0 - 5 /HPF 02/08/2025 8:10 AM CDT [facility] Bacteria Moderate(A) None Seen /HPF 02/08/2025 8:10 AM CDT [facility] Squamous Epithelial Cells Occasional None Seen, Occasional, Few /HPF 02/08/2025 8:10 AM CDT [facility] Hyaline Casts 133(H) <=2 /LPF 02/08/2025 8:10 AM CDT [facility] Crystals, Amorphous Present(A) None Seen 02/08/2025 8:10 AM CDT [facility] Crystals, Calcium Oxalate Present(A) None Seen 02/08/2025 8:10 AM CDT [facility] Source Clean Catch 02/08/2025 8:10 AM CDT [facility] Urine URINE SPECIMEN COLLECTION, CLEAN CATCH / Unknown Non-blood Collection / Unknown 02/08/2025 5:52 AM CDT 02/08/2025 5:56 AM CDT Narrative [facility] - 02/08/2025 8:10 AM CDT The qualitative interpretive guidance provided (e.g., small, moderate, large) is intended to aid in quantitative result interpretation. It is not itself an FDA-cleared test result. us Jagdeep Gurrola MD LAB_1 Final Resu lt [facility] [address] from Last 3 Months Insurance [address] [place] [address] [place] [address] [place] [address] Advance Directives * Full Code (Latest Code Status on File) Date Activated Date Inactivated Comments 02/08/2025 6:52 PM 02/09/2025 3:34 PM Care Teams Polisher Apprentice Relationship Specialty Start Date End Date Needs Pcp, [place] [address] PCP - General 02/08/25
--- OUTSIDE RECORDS SUMMARY | 2025-02-17 16:41 | XMS_ITS | Encounter Summary ---
Author Organization [facility] Address [address] [address] Care Team Providers Care Superintendent Colliery Name Role Phone Needs Pcp, Assignment Primary Care Provider [phone] Reason for Visit * Reason Comments ANXIETY Vomiting ABDOMINAL PAIN--LLQ--ED Encounter Details Date Type Department Care Team (Late st Contact Info) Description 02/14/2025 11:20 AM CDT Office Visit [facility] [address] [place] [address]. [place] [address] [place] [address] [place] [address] ANTONIO (generalized anxiety disorder) (HRC); Abdominal pain, unspecified abdominal location; Nausea and vomiting, unspecified vomiting type; Hyponatremia; Hypokalemia; Thrombocytosis; Elevated serum creatinine Social History Tobacco Use Types Packs/Day Years [...] on file Sexual Orientation Not on file documented as of this encounter Last Filed Vital Signs Vital Sign Reading Time Taken Comments Blood Pressure 127/72 02/14/2025 11:12 AM CDT Pulse 95 02/14/2025 11:12 AM CDT Temperature 36.3 C (97.3 F) 02/14/2025 11:12 AM CDT Respiratory Rate 20 02/14/2025 11:12 AM CDT Oxygen Saturation 99% 02/14/2025 11:12 AM CDT Inhaled Oxygen Concentration - - Weight - - Height - - Body Mass Index - - documented in this encounter Patient Instructions * Patient Instructions* Mike Michele MD - 02/14/2025 11:20 AM CDT Follow up with her clinic appointment in 2 days as already scheduled. Medications as directed. Pushp.o. fluids and nutrition, advance diet as tolerated. If acutely worsens sooner, to the emergency department at that time. * Attachments The following attachments cannot be sent through Care Everywhere. * Hypokalemia ([place]) * Hyponatremia ([place]) * Nausea and Vomiting ([place]) * Creatinine and Creatinine Clearance Tests ([place]) documented in this encounter Progress Notes * Mike Michele MD - 02/14/2025 11:20 AM CDT Rooming Notes: Jaz Beaulieu is a 44 y.o.female presents to the Urgent Care for ANXIETY, Vomiting, and ABDOMINAL PAIN--LLQ--ED Heightened anxiety x12 days with vomiting and LLQ pain. States she feels like she's dying inside. Recent move that she thinks has brought up a lot of emotion being away from family. Went to ER last weekend and prescribed buspar with some improvement. Still cannot eat much or sleep. Vomiting has improved somewhat. Anxiety pain in chest. Subjective: HPI 44-year-old female presents for follow-up from ED visit at [facility] 6 days ago on February 08. Patient recently moved from [place], she does have history of anxiety. Anxiety especially worse over the past 12 days. She presented to the emergency department with abdominal pain, worsening anxiety, nausea and vomiting. Extensive workup was done including lab and imaging studies. BuSpar was added for her anxiety. Patient is already on hydroxyzine for her anxiety. She does have Zofran at home, this has been helping a little bit. Patient presents to urgent Care as anxiety is still not improving. No suicidal ideation, no thoughts of hurting herself or others. Still having nausea with occasional v omiting, symptoms seem to be worse in the morning. Still having some chest pain, this was also worked up at the ED 6 days ago. Her chest pain is unchanged, abdominal pain a little more in the left lower quadrant today. Complicated medical history reviewed as listed below. She also would like her knees inspected today, she has some irritation of the skin which she got from crawling on a wood floorto the toilet for her vomiting. She does have history of bilateral [id number] amputations. History reviewed. No pertinent past medical history. 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 (HRC) Essential hypertension (HRC) ANTONIO (generalized anxiety disorder) (HRC) Post traumatic stress disorder (PTSD) (HRC) Obesity, Class II, BMI 35-39.9 Major depressive disorder, recurrent episode, mild (HRC) Type 2 diabetes mellitus with foot ulcer, without long-term current use of insulin (HRC) Type 2 diabetes, controlled, with neuropathy (HRC) Status post bariatric surgery S/P laparoscopic sleeve gastrectomy Dehydration Abdominal pain, generalized Below knee amputation, traumatic (HRC) Endometrial polyp Gastroesophageal reflux disease without esophagitis History of left below knee amputation (HRC) History of right below knee amputation (HRC) 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 ARIPiprazole (ABILIFY) 2 MG tablet Take 1 Tablet (2 mg) by mouth daily. atorvastatin (LIPITOR) 20 MG tablet Take 1 Tablet (20 mg) by mouth daily. baclofen (LIORESAL) 10 MG tablet Take 1 Tablet (10 mg) by mouth two times daily as needed. busPIRone (BUSPAR) 10 MG tablet Take 1 Tablet (10 mg) by mouth two times a day. calcium carbonate 600 MG tablet Take 2 Tablets (1,200 mg) by mouth daily. DULoxetine (CYMBALTA) 60 MG delayed release capsule Take 1 Capsule (60 mg) by mouth daily. hydrOXYzine HCl (ATARAX) 25 MG tablet Take 1 Tablet (25 mg) by mouth three times a day. Imipramine Pamoate (TOFRANIL-PM) 150 MG capsule Take 1 Capsule (150 mg) by mouth every evening. lisinopril (ZESTRIL) 10 MG tablet Take 1 Tablet (10 mg) by mouth daily. metoprolol tartrate (LOPRESSOR) 25 MG tablet Take 1 Tablet (25 mg) by mouth two times a day. multivitamin with minerals tablet Take 1 Tablet by mouth daily. omeprazole (PRILOSEC) 40 MG capsule Take 1 Capsule (40 mg) by mouth daily. Take 1 hour before a meal. traMADol (ULTRAM) 50 MG tablet Take 1 Tablet (50 mg) by mouth every 6 hours as needed for Pain. Allergies for Jaz Beaulieu Status Agent Date Noted Reaction Type Active ACETAMINOPHEN 02/08/2025 Anaphylaxis Active SULFAMETHOXAZOLE-TRIMETHOPRIM 02/08/2025 Itching History reviewed. No pertinent surgical history. Review of Systems All other systems reviewed and are negative except as noted in HPI. Objective: Physical Exam Constitutional: Pt is in no acute distress. HENT: Head: Normocephalic and atraumatic. Nose: Nose normal. Mouth/Throat: Oropharynx is clear and moist. Eyes: Conjunctivae are normal. Neck: Normal range of motion. Neck supple. Cardiovascular: Normal rate and regular rhythm. Pulmonary/Chest: Effort normal and breath sounds normal. Abdominal: Soft. Bowel sounds are normal. Mild generalized tenderness with palpation, worse in the left lower quadrant. No rebound or guarding. No mass palpated. Neurological: Pt is alert. Skin: Skin is warm and dry. Bilateral knees with superficial healing wounds, small 1 x 2 cm areas of superficial skin has been sloughed off. Minimal tenderness with palpation. No active bleeding or fluctuance, no purulent drainage or proximal red streaks. Nursing note and vitals reviewed. Results for orders placed or performed in visit on 02/14/25 Basic Metabolic Panel Result Value Ref Range Sodium 131 (L) 136 - 145 mmol/L Potassium 3.3 (L) 3.5 - 5.1 mmol/L Chloride 94 (L) 98 - 109 mmol/L CO2 23 20 - 29 mmol/L Anion Gap 14 6 - 16 mmol/L Calcium 10.5 (H) 8.4 - 10.4 mg/dL BUN 15 7 - 26 mg/dL Creatinine 1.73 (H) 0.55 - 1.02 mg/dL Glucose 194 (H) 70 - 100 mg/dL GFR, Estimated 37 (L) >60 mL/min/1.73m2 Hours Fasting 0.1 8 - 12 Hours Complete Blood Count-W/Diff Result Value Ref Range WBC 14.6 (H) 3.5 - 10.5 x10(9)/L RBC 4.68 3.90 - 5.03 x10(12)/L Hemoglobin 14.2 12.0 - 15.5 g/dL HCT 40.2 34.9 - 44.5 % MCV 85.9 80.0 - 100.0 fL MCH 30.3 27.6 - 33.3 pg MCHC 35.3 (H) 31.5 - 35.2 g/dL RDW 12.1 11.9 - 15.5 % Platelets 544 (H) 150 - 450 x10(9)/L Automated NRBC 0 <=0 /100 WBC Neutrophil Absolute 9.7 (H) 1.7 - 7.0 10(9)/L Lymphocyte Absolute 2.5 1.0 - 4.8 10(9)/L Monocyte Absolute 2.0 (H) 0.2 - 0.9 10(9)/L Eosinophil Absolute 0.2 0.0 - 0.5 10(9)/L Basophil Absolute 0.1 0.0 - 0.3 10(9)/L Immature Granulocyte % 0.5 0.0 - 0.5 % Morphology-RBC and Platelet Result Value Ref Range RBC Morphology Reviewed Platelet Estimate Increased (A) Adequate Assessment: Main concern today is her anxiety flare-up. No suicidal ideation or thoughts of hurting herself or others. Follow-up will be necessary. Currently mildly dehydrated, some abnormal labs as noted above.Hyponatremia, hypokalemia, thrombocytosis and elevated serum creatinine noted. Close follow-up and recheck of these labs will be necessary. She does have an appointment scheduled in 2 days already. ICD-10-CM 1. ANTONIO (generalized anxiety disorder) ([facility]) F41.1 ALPRAZolam (XANAX) 0.5 MG tablet 2. Abdominal pain, unspecified abdominal location R10.9 Complete Blood Count -W/Diff Basic Metabolic Panel 3. Nausea and vomiting, unspecified vomiting type R11.2 Complete Blood Count -W/Diff Basic Metabolic Panel 4. Hyponatremia E87.1 5. Hypokalemia E87.6 6. Thrombocytosis D75.839 7. Elevated serum creatinine R79.89 Plan: Exam findings, workup results and differential diagnosis discussed with patient. Shared decision making. Patient states she does not need to returned to [facility] at this time, feel she will be able to try outpatient management at this time. Xanax as per orders, side effects discussed. Patient realizes this is not a long-term medication. Conservative cares otherwise. Push p.o. fluids, advance diet as tolerated. Recommend follow-up in 2 days with her primary clinic as already scheduled. Recommend repeat of hermultiple lab abnormalities at that time. Continue Zofran as directed as needed, patient already has this. If symptoms acutely worsen, to [facility] emergency department immediately. Warning signs and symptoms discussed. See discharge instructions for further recommendations, patient can review this on MyChart. Mike Michele MD documented in this encounter Nursing Notes * Blanca Charlton RN - 02/14/2025 11:20 AM CDT Jaz Beaulieu is a 44 y.o.female presents to the Urgent Care for ANXIETY, Vomiting, and ABDOMINAL PAIN--LLQ--ED Heightened anxiety x12 days with vomiting and LLQ pain. States she feels like she's dying inside. Recent move that she thinks has brought up a lot of emotion being away from family. Went to ER last weekend and prescribed buspar with some improvement. Still cannot eat much or sleep. Vomiting has improved somewhat. Anxiety pain in chest. documented in this encounter Plan of Treatment Upcoming Encounters Date Type Department Care Team (Late st Contact Info) Description 02/22/2025 8:00 AM CDT Appointment [place] [address] [facility] [address] [place] [address]. [place], [place] [id number] Arlene Hines, AVIONICS TEST TECHNICIAN, DEPUTY BRAND INSPECTOR [address] [place] [address] documented as of this encounter Results * (ABNORMAL) Basic Metabolic Panel (02/14/2025 11:39 AM CDT) Sodium 131(L) 136 - 145 mmol/L 02/14/2025 11:57 AM [facility] [address] [facility] Potassium 3.3(L) 3.5 - 5.1 mmol/L 02/14/2025 11:57 AM [place] [address] [facility] Chloride 94(L) 98 - 109 mmol/L 02/14/2025 11:57 AM [place] [address] [facility] CO2 23 20 - 29 mmol/L 02/14/2025 11:57 AM [place] [address] [facility] Anion Gap 14 6 - 16 mmol/L 02/14/2025 11:57 AM [place] [address] [facility] Calcium 10.5(H) 8.4 - 10.4 mg/dL 02/14/2025 11:57 AM [place] [address] [facility] Comment:Low serum albumin ma y artificially lower total calcium, without impacting ionized calcium concentrations. If patient has or is at risk for hypoalbuminemia, consider ionized serum calcium to more accurately assess calcium status. BUN 15 7 - 26 mg/dL 02/14/2025 11:57 AM [facility] [place] [address] [facility] Creatinine 1.73(H) 0.55 - 1.02 mg/dL 02/14/2025 11:57 AM [place] [address] [facility] Glucose 194(H) 70 - 100 mg/dL 02/14/2025 11:57 AM CDT [facility] Comment:The given reference range is for the fasting state. Non-fasting reference range for glucose is 70 - 180 mg/dL. GFR, Estimated 37(L) >60 mL/min/1. 73m2 02/14/2025 11:57 AM CDT [facility] Hours Fasting 0.1 8 - 12 Hours 02/14/2025 11:57 AM [facility] [place] [address] [facility] Comment:Lab unable to obtain patient's fasting status at time of specimen collection. Blood Venipuncture / Unknown 02/14/2025 11:39 AM CDT 02/14/2025 11:39 AM CDT us Mike Michele MD LAB_1 Final Result [facility] [facility] [address] [facility] [address] [place] [address] documented in this encounter Visit Diagnoses Diagnosis ANTONIO (generalized anxiety disorder) (HRC) Generalized anxiety disorder Abdominal pain, unspecified abdominal location Nausea and vomiting, unspecified vomiting type Hyponatremia Hyposmolality and/or hyponatremia Hypokalemia Hypopotassemia Thrombocytosis Essential thrombocythemia Elevated serum creatinine Other nonspecific findings on examination of blood documented in this encounter Care Teams Superintendent Colliery Relationship Specialty Start Date End Date Needs Pcp, Assignment [place], [place] [address] PCP - General 02/08/25 documented as of this encounter
--- OUTSIDE RECORDS SUMMARY | 2025-02-17 16:41 | XMS_ITS | Encounter Summary ---
Author Organization [facility] Address [address], [place] [address] Care Team Providers Care Care Center Manager Name Role Phone Needs Pcp, Assignment Primary Care Provider [phone] Reason for Visit * Reason Comments LAB RESULTS Encounter Details Date Type Department Care Team (Late st Contact Info) Description 02/14/2025 Telephone [facility] [address] [place], [place] [id number] Needs Pcp, [place] [address] LAB RESULTS Social History Tobacco Use Types Packs/Day Years [...] on file documented as of this encounter Nursing Notes * Hunter Cabrera RN - 02/14/2025 3:34 PM CDT Situation/Background (brief explanation of current symptoms/situation): Spoke to pt. Pt just noted blood culture results from 02/08/25 lab. Reassured her that the results have been reviewed and noted as most likely a contaminant. No concerns to address. She verbalized understanding. No other questions noted. Reviewed pertinent medical history (as relates to the call): Yes Reviewed pertinent medications (as relates to the call): Yes documented in this encounter Plan of Treatment Upcoming Encounters Date Type Department Care Team (Late st Contact Info) Description 02/22/2025 8:00 AM CDT Appointment [place] [address] [place] [address]. [place], [place] [id number] Arlene Hines, HAND ICER, RECORD CHANGER TESTER [address] [place], [place] [id number] documented as of this encounter Visit Diagnoses Not on filedocumented in this encounter Care Teams Care Center Manager Relationship Specialty Start Date End Date Needs Pcp, Assignment [place], [place] [address] PCP - General 02/08/25 documented as of this encounter
--- OUTSIDE RECORDS SUMMARY | 2025-02-17 16:41 | XMS_ITS | Encounter Summary ---
Author Organization [email or web address] Address [address], [place] [address] Care Team Providers Care Dialysis Technician Name Role Phone Needs Pcp, Assignment Primary Care Provider [phone] Encounter Details Date Type Department Care Team (Late st Contact Info) Description 02/14/2025 11:40 AM CDT Lab Visit [place] [address] Laboratory [facility]. [place], [place] [address] Abdominal pain, unspecified abdominal location; Nausea and vomiting, unspecified vomiting type Social History Tobacco Use Types Packs/Day Years [...] on file documented as of this encounter Plan of Treatment Upcoming Encounters Date Type Department Care Team (Late st Contact Info) Description 02/22/2025 8:00 AM CDT Appointment [place] [address] Family [facility] [address] [facility] [place], [place] [phone] Arlene Hines, SHOP CLERK, CHIEF SOLUTION ARCHITECT [address] [place], [place] [phone] documented as of this encounter Procedures Procedure Name Priority Date/Time Associated Diagnosis [...] location Nausea and vomiting, unspecified vomiting type documented in this encounter Results * (ABNORMAL) Morphology-RBC and Platelet (02/14/2025 11:39 AM CDT) RBC Morphology Reviewed 02/14/2025 12:03 PM CDT [facility] LAB[facility]AT[facility] Platelet Estimate Increased(A) Adequate 02/14/2025 12:03 PM CDT [facility] LAB[facility]ORY Blood Venipuncture / Unknown 02/14/2025 11:39 AM CDT 02/14/2025 11:39 AM CDT Mike Michele MD LAB_1 Final Result [place] [address] LAB[facility]AT[facility] [address] [place] [address] * (ABNORMAL) Complete Blood Count-W/Diff (02/14/2025 11:39 AM CDT) [facility] Signature WBC 14.6(H) 3.5 - 10.5 x10(9)/L 02/14/2025 12:03 PM [place] [address] [facility] RBC 4.68 3.90 - 5.03 x10(12)/L 02/14/2025 12:03 PM [place] [address] [facility] Hemoglobin 14.2 12.0 - 15.5 g/dL 02/14/2025 12:03 PM [place] [address] [facility] HCT 40.2 34.9 - 44.5 % 02/14/2025 12:03 PM [place] [address] [facility] MCV 85.9 80.0 - 100.0 fL 02/14/2025 12:03 PM [place] [address] [facility] MCH 30.3 27.6 - 33.3 pg 02/14/2025 12:03 PM [place] [address] [facility] MCHC 35.3(H) 31.5 - 35.2 g/dL 02/14/2025 12:03 PM [place] [address] [facility] RDW 12.1 11.9 - 15.5 % 02/14/2025 12:03 PM [place] [address] [facility] Platelets 544(H) 150 - 450 x10(9)/L 02/14/2025 12:03 PM [place] [address] [facility] Automated NRBC 0 <=0 /100 WBC 02/14/2025 12:03 PM [place] [address] [facility] Neutrophil Absolute 9.7(H) 1.7 - 7.0 10(9)/L 02/14/2025 12:03 PM [place] [address] [facility] Lymphocyte Absolute 2.5 1.0 - 4.8 10(9)/L 02/14/2025 12:03 PM [place] [address] [facility] Monocyte Absolute 2.0(H) 0.2 - 0.9 10(9)/L 02/14/2025 12:03 PM [place] [address] [facility] Eosinophil Absolute 0.2 0.0 - 0.5 10(9)/L 02/14/2025 12:03 PM T [place] [address] [facility] Basophil Absolute 0.1 0.0 - 0.3 10(9)/L 02/14/2025 12:03 PM [place] [address] [facility] Immature Granulocyte % 0.5 0.0 - 0.5 % 02/14/2025 12:03 PM [place] [address] [facility] Blood Venipuncture / Unknown 02/14/2025 11:39 AM CDT 02/14/2025 11:39 AM CDT us Mike Michele MD LAB_1 Final Result [address] [id number] * (ABNORMAL) Basic Metabolic Panel (02/14/2025 11:39 AM CDT) Sodium 131(L) 136 - 145 mmol/L 02/14/2025 11:57 AM [place] [address] [facility] Potassium 3.3(L) 3.5 - 5.1 mmol/L 02/14/2025 11:57 AM [place] [address] [facility] Chloride 94(L) 98 - 109 mmol/L 02/14/2025 11:57 AM [place] [address] [facility] CO2 23 20 - 29 mmol/L 02/14/2025 11:57 AM [place] [address] [facility] Anion Gap 14 6 - 16 mmol/L 02/14/2025 11:57 AM [place] [address] [facility] Calcium 10.5(H) 8.4 - 10.4 mg/dL 02/14/2025 11:57 AM [place] [address] [facility] Comment:Low serum albumin ma y artificially lower total calcium, without impacting ionized calcium concentrations. If patient has or is at risk for hypoalbuminemia, consider ionized serum calcium to more accurately assess calcium status. BUN 15 7 - 26 mg/dL 02/14/2025 11:57 AM [place] [address] [facility] Creatinine 1.73(H) 0.55 - 1.02 mg/dL 02/14/2025 11:57 AM [place] [address] [facility] Glucose 194(H) 70 - 100 mg/dL 02/14/2025 11:57 AM CDT [place] [address] [facility] Comment:The given reference range is for the fasting state. Non-fasting reference range for glucose is 70 - 180 mg/dL. GFR, Estimated 37(L) >60 mL/min/1. 73m2 02/14/2025 11:57 AM CDT [facility] LAB[facility] Hours Fasting 0.1 8 - 12 Hours 02/14/2025 11:57 AM T [place] [address] [facility] Comment:Lab unable to obtain patient's fasting status at time of specimen collection. Blood Venipuncture / Unknown 02/14/2025 11:39 AM CDT 02/14/2025 11:39 AM CDT us Mike Michele MD LAB_1 Final Result [place] [address] [facility] [address] [place] [address] documented in this encounter Visit Diagnoses Diagnosis Abdominal pain, unspecified abdominal location Nausea and vomiting, unspecified vomiting type documented in this encounter Care Teams Dialysis Technician Relationship Specialty Start Date End Date Needs Pcp, Assignment [place], [place] [address] PCP - General 02/08/25 documented as of this encounter
--- OUTSIDE RECORDS SUMMARY | 2025-02-17 16:41 | XMS_ITS | Encounter Summary ---
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 You can quickly make your appointment online at [employer]/schedule. You can also call [phone] for help scheduling your appointment. We suggest you call your health insurance company about your coverage and benefits for this appointment. Question Answer What type of follow up? IP Discharge Appointment Urgency? Within 2 weeks Comments Primary Care Provider: Assignment Needs PCP * Procedure/Equipment (Routine) - Incomplete Specialty Diagnoses / Procedures Referred By Contac t Referred To Contact Procedures US Pelvic Complete WO EV US Pelvic Complete W EV US Pelvic (EV Only) Jagdeep Gurrola MD [address] [facility] [address] [place] [address] Phone: tel: fax: Referral ID Status Reason Start Date Expiration Date V isits Requested Visits Authorized [id number] Incomplete 02/08/2025 05/10/2026 1 1 * Procedure/Equipment (Routine) - Incomplete Specialty Diagnoses / Procedures Referred By Contac t Referred To Contact Procedures US Abd Ltd Gallbladder Only US Abd RUQ Organs Jagdeep Gurrola MD [address] [place] [address] Phone: tel: fax: Referral ID Status Reason Start Date Expiration Date V isits Requested Visits Authorized [id number] Incomplete 02/08/2025 05/10/2026 1 1 * Procedure/Equipment (Routine) - Incomplete Specialty Diagnoses / Procedures Referred By Contac t Referred To Contact Procedures CT Abd Pelvis W IV Cont Only Jagdeep Gurrola MD [address] [place] [address] Phone: tel: fax: Referral ID Status Reason Start Date Expiration Date V isits Requested Visits Authorized [id number] Incomplete 02/08/2025 05/10/2026 1 1 * (Routine) - Incomplete Specialty Diagnoses / Procedures Referred By Contac t Referred To Contact Procedures ECG 12 Lead Jagdeep Gurrola MD [address] [place] [address] Phone: tel: fax: Referral ID Status Reason Start Date Expiration Date V isits Requested Visits Authorized [id number] Incomplete 02/08/2025 05/10/2026 1 1 Reason for Visit * Reason Comments Nausea * Auth/Cert (Routine) Specialty Diagnoses / Procedures Referred By Contac t Referred To Contact Diagnoses Lower abdominal pain Vomiting, unspecified vomiting type, unspecified whether nausea present Uterine leiomyoma, unspecified location Uterine leiomyoma, unspecified location Lower abdominal pain Vomiting, unspecified vomiting type, unspecified whether nausea present Referral ID Status Reason Start Date Expiration Date Visits Re quested Visits Authorized [id number] 1 1 Encounter Details Date Type Department Care Team (Late st Contact Info) Description 02/08/2025 5:45 AM CDT - 02/09/2025 1:34 PM CDT Hospital Encounter [facility] 4[facility] Surgery/Pediatrics [address] [facility] [place], [place] [address] Jagdeep Gurrola MD [address] [id number] Nasreen Rose DO [address] [place] [address] Juan Hernandez MD [address] [place] [phone] ANTONIO (generalized anxiety disorder) ([facility]) (Primary Dx); Uterine leiomyoma, unspecified location; Lower abdominal pain; Vomiting, unspecified vomiting type, unspecified whether nausea present Discharge Disposition: Home Social History Tobacco Use Types Packs/Day Years [...] Sign Reading Time Taken Comments Blood Pressure 116/72 02/09/2025 6:22 AM CDT Pulse 93 02/09/2025 6:22 AM CDT Temperature 36.7 C (98.1 F) 02/09/2025 6:22 AM CDT Respiratory Rate 18 02/09/2025 6:22 AM CDT Oxygen Saturation 96% 02/09/2025 6:22 AM CDT Inhaled Oxygen Concentration - - Weight - - Height - - Body Mass Index - - documented in this encounter Discharge Summaries * Juan Hernandez MD - 02/09/2025 9:59 AM CDT DISCHARGE SUMMARY Date of service: 02/09/2025 Patient ID: Jaz Beaulieu [id number] 44 y.o. 1980 Admit date: 02/08/2025 Discharge date: 02/09/2025 Admission Diagnoses: vomiting Discharge Diagnoses: Principal Problem: Abdominal pain, generalized Active Problems: ANTONIO (generalized anxiety disorder) (HR) Post traumatic stress disorder (PTSD) (HRC) Obesity, Class II, BMI 35-39.9 Type 2 diabetes mellitus with foot ulcer, without long-term current use of insulin (HRC) Dehydration Hospital Course: Pt admitted with abd discomfort and nausea vomiting. No fever/chills,BRBPR or hematemesis. Workup: D-dimer normal WBC 11 but PCT normal at 0.02 UA no nitrites. Trace LE (pt without urinary symptoms) CT A/P, RUQ U/s, pelvic u/s all without abnormalities to account for symptoms- essentially all normal. Pts symptoms improved spontaneously. She thinks its all due to nerves and anxiety as she has had this before. She just moved to [place] from [place], which is a stressor. Seh takes hydroxyzine prn for anxiety an dis open to start another anxiety med Buspar 10 mg bid started.this hospital stay Pt should establish primary care for follow up in this regard She will go to PN in [employer] Pt doing well. Bright affect. No abd pain. Discharged home in good condition Disposition: home Patient Instructions: Done while pt still in hospital bed Medication List START taking these medications busPIRone 10 MG tablet Commonly known as: BUSPAR Take 1 Tablet (10 mg) by mouth two times a day. CONTINUE taking these medications ARIPiprazole 2 MG tablet Commonly known as: ABILIFY atorvastatin 20 MG tablet Commonly known as: LIPITOR baclofen 10 MG tablet Commonly known as: LIORESAL calcium carbonate 600 MG tablet DULoxetine 60 MG delayed release capsule Commonly known as: CYMBALTA hydrOXYzine HCl 25 MG tablet Commonly known as: ATARAX Imipramine Pamoate 150 MG capsule Commonly known as: TOFRANIL-PM lisinopril 10 MG tablet Commonly known as: ZESTRIL metoprolol tartrate 25 MG tablet Commonly known as: LOPRESSOR multivitamin with minerals tablet omeprazole 40 MG capsule Commonly known as: PriLOSEC traMADol 50 MG tablet Commonly known as: ULTRAM Where to Get Your Medications These medications were sent to [facility] [address] [place] [address] Hours: Open 24x7 busPIRone 10 MG tablet Discharge Procedure Orders Establish Primary Care Referral Priority: Routine Referral Type: Consult/Transfer Care Number of Visits Requested: 1 Expiration Date: 05/10/25 If you have new or worsening symptoms or any of the following symptoms, call your Primary Care doctor: Order Comments: o Fever of 101 Fahrenheit or higher o Pain that does not improve with pain medication o Unable to tolerate liquids and stay hydrated or Continual nausea or vomiting o New severe lightheadedness or dizziness Activity as tolerated - No Restrictions Regular Diet Order Comments: Pending Results and Other Workup Needing Follow-up Order Comments: Pending Labs Order Current Status Blood Culture In process Blood Culture In process Blood Culture In process Blood Culture In process Hgb A1C In process No follow-up provider specified. Discharge time over 30 minutes Juan Hernandez MD Addendum 02/10 I was called as 1/2 BC from 02/08 returned positive. BC ID shows Staph Epi Pt was afebrile and nontoxic appearing during the hospital stay. Her Abd was soft and nontender. 1/2 pos BC for staph epi is almost certainly contaminant. documented in this encounter Medications at Time of Discharge ARIPiprazole (ABILIFY) 2 MG tablet Take 1 [...] Tablet 1 02/09/2025 1:37 PM CDT 02/09/2025 02/09/2026 calcium carbonate 600 MG tablet Take 2 [...] every 6 hours as needed for Pain. documented as of this encounter OR Notes * H&P - Nasreen Rose DO - 02/08/2025 2:28 PM CDT HISTORY & PHYSICAL EXAM Date of admission: 02/08/2025 Primary Care Provider: Assignment Needs PCP HPI: This is a 44 y.o. female admitted to [facility] for intractable abdominal pain and vomiting 44 year old, recently moved to [place] from [place], hx of below knee amputation, with history of DMtype 2, HTN, ANTONIO, laparoscopic sleeve gastrectomy who suddenly had abdominal pain on Saturday. Patient denies any sick contacts, travel, drug or recreational drug use. Patient states symptoms persisted prompting her to call EMS and come to ED. On arrival to ED, lactate 2.3, patient tachycardic at 104, bp 176/128. CT abdomen and pelvis with no acute findings. Patient admitted for further care. No past medical history on file. Patient Active Problem List Diagnosis Chronic inflammatory [...] laparoscopic sleeve gastrectomy Dehydration Abdominal pain, generalized Social Drivers of Health Tobacco Use: Medium Risk (01/27/2025) Received from [facility] [employer] Patient History Smoking Tobacco Use: Former Smokeless Tobacco Use: Never Alcohol Use: Not At Risk (08/19/2023) Received from [facility] and the [facility] AUDIT-C How often did you have a drink containing alcohol in the past year?: 0 How many drinks did you have on a typical day when you were drinking in the past year?: 0 How often did you have 6 or more drinks on one occasion in the past year?: 0 Food Insecurity: No Food Insecurity (08/19/2023) Received from [facility] and the [facility] Hunger Vital Sign Worried About Running Out of Food in the Last Year: Never true Ran Out of Food in the Last Year: Never true Transportation Needs: No Transportation Needs (11/13/2023) Received from [facility] OASIS A1250: Transportation Lack of Transportation (Medical): No Lack of Transportation (Non-Medical): No Patient Unable or Declines to Respond: No Social Connections: Feeling Socially Integrated (11/13/2023) Received from [facility] OASIS D0700: Social Isolation Frequency of experiencing loneliness or isolation: Never Depression: Not at risk (01/27/2025) Received from [facility] [facility] PHQ-2 PHQ-2 Total Score: 0 Housing Stability: Low Risk (08/19/2023) Received from [facility] and the [facility] Housing Stability Vital Sign Unable to Pay for Housing in the Last Year: No Number of Places Lived in the Last Year: 1 Unstable Housing in the Last Year: No Utilities: Not At Risk (08/19/2023) Received from [facility] and the [facility] Utilities Threatened with loss of utilities: No No family history on file. Patient has no allergy information on record. Medication: Current Facility-Administered Medications Medication Dose Route Frequency Provider Last Rate Last Admin droPERidol (INAPSINE) injection 0.625 mg 0.625 mg Intravenous Once Jagdeep Gurrola MD ketorolac (TORADOL) injection 15 mg 15 mg Intravenous Q6H PRN Nasreen Rose, DO Current Outpatient Medications Medication Sig Dispense Refill ARIPiprazole (ABILIFY) 2 MG tablet Take 1 Tablet (2 mg) by mouth daily. atorvastatin (LIPITOR) 20 MG tablet Take 1 Tablet (20 mg) by mouth daily. DULoxetine (CYMBALTA) 60 MG delayed release capsule Take 1 Capsule (60 mg) by mouth daily. hydrOXYzine HCl (ATARAX) 25 MG tablet Take 1 Tablet (25 mg) by mouth three times a day as needed. lisinopril (ZESTRIL) 10 MG tablet Take 1 Tablet (10 mg) by mouth daily. metoprolol tartrate (LOPRESSOR) 25 MG tablet Take 1 Tablet (25 mg) by mouth two times a day. omeprazole (PRILOSEC) 40 MG capsule Take 1 Capsule (40 mg) by mouth daily. Take 1 hour before a meal. ROS: A comprehensive review of system was negative except for the following: see hPI Physical Exam: Vitals: Blood pressure (!) 147/102, pulse (!) 116, temperature 36.6 ??C (97.8 ??F), temperature source Oral, resp. rate 20, SpO2 100%. There is no height or weight on file to calculate BMI. General: Patient alert, in NAD. . Upper Extremities: FROM with good strength CV: RRR without murmurs Resp: cbta Abdomen: soft, nd, +bs Lower Extremities: below knee amputation Rectal: Not examined. Skin: No lesions. Neuro: CN II-XII, motor & sensory function all intact. Psychiatric: Alert & oriented with normal affect and insight. Patient appears anxious Labs: reviewed by me Lab Results Component Value Date Creatinine 0.95 02/08/2025 Glucose 221 (H) 02/08/2025 CO2 24 02/08/2025 Chloride 94 (L) 02/08/2025 Potassium 3.7 02/08/2025 Sodium 133 (L) 02/08/2025 BUN 15 02/08/2025 Calcium 10.9 (H) 02/08/2025 GFR, Estimated >60 02/08/2025 Lab Results Component Value Date WBC 16.9 (H) 02/08/2025 RBC 4.93 02/08/2025 Hemoglobin 14.6 02/08/2025 HCT 42.7 02/08/2025 MCV 86.6 02/08/2025 RDW 12.2 02/08/2025 Platelets 477 (H) 02/08/2025 Images: see epic Assessment/Plan: This is a 44 y.o. female with DM type 2, morbid obesity, HTN, below knee amputation admitted to [facility] for intractable abdominal pain, dehydration. Active medical problems & Chronic medical conditions address during this hospitalization Plan: Intractable abdominal pain/dehydration: will hydrate, regular diet. Will add d dimer and crp. Possibly functional abdominal pain but will need to exclude other causes. Will check urine drug screen. Zofran prn. DM type 2: insulin and poct glucose check Morbid obesity HTN: continue med Code Status: full 6. Will ask pharm to help reconcile home meds Plan discuss with patient Billing Based on Complexity: high This note was created with the assistance of voice recognition software. Occasional wrong word or '[id number]' substitutions may have occurred due to software's limitation. Nasreen Rose DO 2:29 PM 02/08/20[facility] this encounter ED Notes * Jagdeep Gurrola MD - 02/08/2025 6:06 AM CDT Emergency Center Note History of Present Illness Chief Complaint Nausea HPI Jaz Beaulieu is a 44 y.o. female with history of CIPD, hypertension, type II diabetes, anxiety,bilateral BKA who presents to the ED for evaluation of anxiety, abdominal pain.. Patient presents with 5-6 days of abdominal pain, nausea, vomiting, increased anxiety. She describes the abdominal pain as right sided and epigastric. This has been constant but waxes and wanes in intensity. She deniesdiarrhea and actually has felt somewhat constipated. Her last bowel movement was on . She has history of cyclic vomiting syndrome and states this feels similar. In the past this has been triggered with cannabis use or increased stress. The last time she used cannabis was one week ago. She takes hydroxyzine which has not been helpful for the increased anxiety. She did have temporary reliefwith Xanax at home. Medics gave 4 mg Zofran and 4 mg risperidone. She still has her gallbladder, uterus and ovaries. Surgical history includes gastric sleeve and . Independent Historian None Review of External Notes [facility] discharge summary dated 12/27/23. Past Medical History Medical History and Problem List There is no problem list on file for this patient. Medications No current outpatient medications on file. Physical Exam Triage Vitals [02/08/25 0550] Temp 36.6 ??C (97.8 ??F) Temp src Oral Pulse (!) 113 Resp BP (!) 175/106 SpO2 97 % General: On well-appearing but nontoxic HEENT: EOMs intact. Neck supple. No midline spinal tenderness. No meningismus. Cardiovascular: Heart sounds normal, no murmur. Equal pulses in all 2 distal extremities. Respiratory: Lungs clear to auscultation bilaterally Abdomen: Abdomen is soft, tender in lower abdomen but no guarding rebound or rigidity. No CVA tenderness. No rebound. MSK: Full range of motion of all 2 distal extremities. Lower extremity BKA is present Skin: No rash, erythema or induration Neuro: Alert and oriented Vitals Trending Patient Vitals for the past 24 hrs: BP Temp Temp src Pulse Resp SpO2 02/08/25 1404 (!) 147/102 -- -- -- -- -- 02/08/25 1318 -- -- -- (!) 116 20 100 % 02/08/25 1235 -- -- -- (!) 108 -- 94 % 02/08/25 1230 (!) 161/92 -- -- (!) 108 -- 98 % 02/08/25 1210 -- -- -- (!) 111 -- 98 % 02/08/25 1200 (!) 169/99 -- -- (!) 120 -- 97 % 02/08/25 0830 (!) 164/105 -- -- (!) 116 -- 98 % 02/08/25 0826 (!) 149/104 -- -- (!) 114 -- 100 % 02/08/25 0700 (!) 175/104 -- -- (!) 111 -- 95 % 02/08/25 0600 (!) 176/128 -- -- (!) 104 -- 100 % 02/08/25 0550 (!) 175/106 36.6 ??C (97.8 ??F) Oral (!) 113 -- 97 % Diagnostics Lab Results Results for orders placed or performed during the hospital encounter of 02/08/25 ECG 12 Lead Result Value Ref Range Ventricular Rate 104 BPM Atrial Rate 104 BPM P-R Interval 138 ms QRS Duration 78 ms QT 366 ms QTC 481 ms P [place] 60 degrees R [place] 26 degrees T [place] 29 degrees Imaging US Pelvic Complete WO EV Final Result COMPARISON: None. TECHNIQUE: Transabdominal imaging was performed. [...] masses. IMPRESSION 1. Uterine fibroid. Otherwise unremarkable. US Abd Ltd Gallbladder Only Final Result COMPARISON: CT abdomen scan done 02/08/2025. TECHNIQUE: Limited gallbladder ultrasound following a recent CT abdomen scan done. FINDINGS: GALLBLADDER: No stones, sludge, wall thickening, or pericholecystic fluid. SONOGRAPHIC RABAGO'S SIGN: Negative CBD:0.4 cm. IMPRESSION Gallbladder is unremarkable. CT Abd Pelvis W IV Cont Only Final Result COMPARISON: None. TECHNIQUE: Images were obtained through [...] nonobstructing calyceal calculus in the right kidney. EKG ECG Results ECG 12 Lead (Preliminary result) Collection Time Result Time Ventricular Rate Atrial Rate P-R Interval QRS Duration QT QTC P [place] R Dec[place] T [place] 02/08/25 06:03:50 02/08/25 06:04:15 104 104 138 78 366 481 60 26 29 Preliminary result Narrative: Sinus tachycardia Low voltage QRS Borderline ECG No previous ECGs available Independent Interpretation None ED Course Medications Administered Medications None Procedures None Discussion of Management Admitting Hospitalist ED Course Clinical Impressions as of 02/08/25 1451 Uterine leiomyoma, unspecified location Lower abdominal pain Vomiting, unspecified vomiting type, unspecified whether nausea present Additional Documentation None Medical Decision Making / Diagnosis MIPS None [facility] Jazmaciej Beaulieu is a 44 y.o. female with a past medical history of COPD, hypertension, hyperlipidemia, anxiety, bilateral BKA is who presents to the emergency department for evaluation of abdominal pain. Symptoms ongoing for the past several days, describes pain in lower abdomen and epigastrium. It is associated with nausea and vomiting. No chest pain or or shortness of breath. Symptoms are constant but wax and wane in nature. My differential diagnosis included appendicitis, diverticulitis, ureterolithiasis. CT abdomen and pelvis showed renal stone but no other acute findings. Considered ovarian pathology, has not ovarian fibroid but no evidence of torsion. With symptoms and constant I do not suspect intermittent torsion. With right upper quadrant and epigastric pain I considered hepatobiliary pathology noting her mildelevations in AST ALT and hyperbilirubinemia. There is no evidence of gallstones or choledocholithiasis or signs of cholecystitis. Does have a leukocytosis, lactic acidosis but no fever or obvious source of infection. UA with ketonuria, glucosuria, moderate bacteria but nitrite negative leukocyte esterase trace and 3 white blood cells making this unlikely. Lactic acidosis improving with fluid resuscitation but despite multiple pain and antiemetic interventions, she remains nauseated, vomiting after meals and persistently tachycardic. She does report a history of cyclic vomiting syndrome, states she has not used marijuana in over a week and clinically she does not appear to be signs of alcohol withdrawal. Due to her persistent symptoms and inability to tolerate p.o., contacted our hospitalist to evaluate for observation for symptom management. Disposition Admitted to hospitalist. Diagnosis Final diagnoses: [D25.9] Uterine leiomyoma, unspecified location [R10.30] Lower abdominal pain [R11.10] Vomiting, unspecified vomiting type, unspecified whether nausea present Stacia Barragan, am serving as a scribe at 6:54 AM to document services personally performed by Jagdeep Gurrola MD, based on my observations and the provider's statements to me. 02/08/2025 [facility] Portions of this medical record were completed by a scribe. UPON MY REVIEW AND AUTHENTICATION BY ELECTRONIC SIGNATURE, this confirms (a) I performed the applicable clinical services, and (b) the record is accurate. Jagdeep Gurrola MD 02/08/25 4801 documented in this encounter Plan of Treatment Upcoming Encounters Date Type Department Care Team (Late st Contact Info) Description 02/22/2025 8:00 AM CDT Appointment [facility] [address] [facility] [address] [facility]. [place], [place] [id number] Arlene Hines, FRUIT CHECKER, VEGETABLE FARMING SUPERVISOR [address] [place] [address] Scheduled Referrals Name Type Priority Associated Diagnoses Orde r Schedule Establish Primary Care Referral Routine ANTONIO (generalized anxiety disorder) (HRC) Ordered: 02/09/2025 documented as of this encounter Procedures Procedure Name Priority Date/Time Associated Diagnosis Comments GLUCOSE, WHOLE BLOOD POCT Routine 02/09/2025 7:59 AM CDT BASIC METABOLIC PANEL Routine 02/09/2025 6:29 AM CDT COMPLETE BLOOD COUNT-NO DIFF Routine 02/09/2025 6:29 AM CDT HGB A1C Add-On 02/09/2025 6:29 AM CDT BLOOD CULTURE STAT 02/08/2025 3:31 PM CDT BLOOD CULTURE STAT 02/08/2025 3:31 PM CDT BLOOD CULTURE Routine 02/08/2025 2:39 PM CDT MOLECULAR BLOOD CULTURE IDENTIFICATION STAT 02/08/2025 2:39 PM CDT BLOOD CULTURE Routine 02/08/2025 2:39 PM CDT PROCALCITONIN Routine 02/08/2025 2:39 PM CDT D DIMER, QUANTITATIVE Routine 02/08/2025 2:39 PM CDT US PELVIC COMPLETE WO EV STAT 02/08/2025 11:19 AM CDT US ABD LTD GALLBLADDER ONLY STAT 02/08/2025 11:13 AM CDT LACTATE 2 HOUR Specified Time 02/08/2025 8:[address] ABD PELVIS W IV CONT ONLY STAT 02/08/2025 7:42 AM CDT EXTRA BLUE TOP TUBE Routine 02/08/2025 6 :32 AM CDT LACTATE REFLEX PANEL Add-On 02/08/2025 6:31 AM CDT CBC AND DIFFERENTIAL PANEL STAT 02/08/2025 6:31 AM CDT HS-TROPONIN I (NO REFLEX) STAT Add-On 02/08/2025 6:31 AM CDT BRAIN NATRIURETIC PEPTIDE (BNP) STAT Add-On 02/08/2025 6:31 AM CDT COMPLETE BLOOD COUNT-W/DIFF STAT 02/08/2025 6:31 AM CDT COMPREHENSIVE METABOLIC PANEL STAT 02/08/2025 6:31 AM CDT HCG,QUALITATIVE, SERUM STAT 02/08/2025 6:31 AM CDT LIPASE STAT 02/08/2025 6:31 AM CDT ECG 12 LEAD INPATIENT STAT 02/08/2025 6:03 AM CDT EXTRA URINE TUBE Routine 02/08/2025 5:52 AM CDT UA CONDITIONAL UC STAT Add-On 02/08/2025 5:5 2 AM CDT documented in this encounter Results * (ABNORMAL) Glucose, Whole Blood POCT (02/09/2025 7:59 AM CDT) Glucose, Whole Blood 258(H) 70 - 180 mg/dL 02/09/2025 8:00 AM CDT [facility] Performing Location [place] 4[place] 02/09/2025 8:00 AM CDT [facility] Blood 02/09/2025 7:59 AM CDT 02/09/2025 8:00 AM CDT us Juan Hernandez MD LAB_1 Final Re sult Performing Organization Address City/[facility]/ZIP Co de Phone Number [facility] [address] * (ABNORMAL) Hgb A1C (02/09/2025 6:29 AM CDT) Hemoglobin A1C 5.7(H) <=5.6 % 02/09/2025 10:31 AM CDT [facility] Estimated Average Glucose (Calc) 117 < 117 mg/dL 02/09/2025 10:31 AM T [facility] Comment:Estimated average gl ucose (eAG) converts A1c into glucose units (mg/dL) and estimates average glucose over the past approximately 3 months. The eAG reference interval (<117 mg/dL) corresponds to an A1c of <5.7%. Blood Venipuncture / Unknown 02/09/2025 6:29 AM CDT 02/09/2025 7:15 AM CDT Narrative [facility] [facility] - 02/09/2025 10:31 AM CDT For patients not previously diagnosed with diabetes: 5.7-6.4%: Increased risk for diabetes 6.5% and greater: Diagnostic for diabetes For patients diagnosed with diabetes: <8.0%: Goal of therapy for ages 18-75 Clinicians may recommend a higher or lower goal for specific individuals. us Juan Hernandez MD LAB_1 Final Re sult Performing Organization Address City/[facility]/ZIP Co de Phone Number [facility] [address] * (ABNORMAL) Complete Blood Count-No Diff (02/09/2025 6:29 AM CDT) WBC 11.9(H) 3.5 - 10.5 x10(9)/L 02/09/2025 7:20 AM CDT [facility] RBC 4.19 3.90 - 5.03 x10(12)/L 02/09/2025 7:20 AM CDT [facility] Hemoglobin 12.7 12.0 - 15.5 g/dL 02/09/2025 7:20 AM CDT [facility] HCT 37.8 34.9 - 44.5 % 02/09/2025 7:20 AM CDT [facility] MCV 90.2 80.0 - 100.0 fL 02/09/2025 7:20 AM CDT [facility] MCH 30.3 27.6 - 33.3 pg 02/09/2025 7:20 AM CDT [facility] MCHC 33.6 31.5 - 35.2 g/dL 02/09/2025 7:20 AM CDT [facility] RDW 12.7 11.9 - 15.5 % 02/09/2025 7:20 AM CDT [facility] Platelets 382 150 - 450 x10(9)/L 02/09/2025 7:20 AM CDT [facility] Automated NRBC 0 <=0 /100 WBC 02/09/2025 7:20 AM CDT [facility] Blood Venipuncture / Unknown 02/09/2025 6:29 AM CDT 02/09/2025 7:15 AM CDT us Nasreen Rose DO LAB_1 Final Resu lt [facility] [address] [employer] [address] * (ABNORMAL) Basic Metabolic Panel (02/09/2025 6:29 AM CDT) Pathologist [facility] Sodium 134(L) 136 - 145 mmol/L 02/09/2025 7:56 AM CDT [facility] Potassium 4.1 3.5 - 5.1 mmol/L 02/09/2025 7:56 AM CDT [facility] Chloride 101 98 - 109 mmol/L 02/09/2025 7:56 AM CDT [facility] CO2 22 20 - 29 mmol/L 02/09/2025 7:56 AM CDT [facility] Anion Gap 11 6 - 16 mmol/L 02/09/2025 7:56 AM CDT [facility] Calcium 9.0 8.4 - 10.4 mg/dL 02/09/2025 7:56 AM CDT [facility] BUN 10 7 - 26 mg/dL 02/09/2025 7:56 AM CDT [facility] Creatinine 0.83 0.55 - 1.02 mg/dL 02/09/2025 7:56 AM CDT [facility] Glucose 134(H) 70 - 100 mg/dL 02/09/2025 7:56 AM CDT [facility] Comment:The given reference range is for the fasting state. Non-fasting reference range for glucose is 70 - 180 mg/dL. GFR, Estimated >60 >60 mL/min/1.7 3m2 02/09/2025 7:56 AM CDT [facility] Blood Venipuncture / Unknown 02/09/2025 6:29 AM CDT 02/09/2025 7:15 AM CDT Nasreen Rose DO LAB_1 Final Resu lt [facility] [address] [place] [address], [facility] * Blood Culture (02/08/2025 3:31 PM CDT) [facility] Signature Blood Culture No Growth at 5 Days LAB ETEST METHOD 02/13/2025 10:02 PM CDT [facility] Blood VENIPUNCTURE / Unknown Venipuncture / Unknown 02/08/2025 3:31 PM CDT 02/08/2025 3:36 PM CDT Nasreen Rose DO LAB_1 Final Resu lt [facility] [address] [place] [address], [facility] * (ABNORMAL) Molecular Blood Culture Identification (02/08/2025 2:39 PM CDT) Pathologist [facility] Molecular Identification Staphylococcus epidermidis Detected(A) (none) MOLECULAR BLOOD CULTURE IDENTIFICATION 3:00 PM CDT [facility] Blood VENIPUNCTURE / Unknown Venipuncture / Unknown 02/08/2025 2:39 PM CDT 02/08/2025 2:44 PM CDT Nasreen Rose DO LAB_1 Final Resu lt Performing Organization Address City/[facility] Co de Phone Number [address] [address], [facility] * D Dimer (02/08/2025 2:39 PM CDT) [facility] D Dimer, Quant <0.27 <=0.50 ug/mL FEU 02/08/2025 3:08 PM CDT [facility] Blood Venipuncture / Unknown 02/08/2025 2:39 PM CDT 02/08/2025 2:44 PM CDT Narrative [facility] - 02/08/2025 3:08 PM CDT A [...] with anticoagulation therapy and increasing clot age. Nasreen Rose DO LAB_1 Final Resu lt Performing Organization Address City/[facility] de Phone Number [facility] [address] [id number] * (ABNORMAL) Blood Culture (02/08/2025 2:39 PM CDT) [facility] Blood Culture Growth(AA) RH LAB ETEST METHOD 02/14/2025 3:00 PM CDT [facility] Blood Culture Growth in Anaerobic Bottle: Staphylococcus epidermidis RH LAB ETEST METHOD 02/14/2025 3:00 PM CDT [facility] Comment: Coagulase Negative Staphylococcus isolated from a single blood culture set is considered a probable contaminant. Sensitivity not performed This is an edited result. Previous organism was Gram Positive Cocci Clusters on 02/09/2025 at 1425 CDT. Blood VENIPUNCTURE / Unknown Venipuncture / Unknown 02/08/2025 2:39 PM CDT 02/08/2025 2:44 PM CDT Nasreen Rose DO LAB_1 Final Resu Performing Organization Address [place] Number [facility] [address] * Procalcitonin (02/08/2025 2:39 PM CDT) [facility] Procalcitonin 0.02 <=0.24 ng/mL 02/08/2025 3:33 PM CDT [facility] Blood Venipuncture / Unknown 02/08/2025 2:39 PM CDT 02/08/2025 2:44 PM CDT Narrative [facility] - 02/08/2025 3:33 PM CDT Suspected Lower Respiratory Tract Infection (Positive imaging and respiratory symptoms present): < 0.24: Suggests non-bacterial infection. 0.25-0.49: Bacterial infection possible. Consider causes of false elevations such as CKD. >= 0.50: Suggestive of bacterial infection. Consider causes of false elevations. Clinicians should use these results in conjunction with other laboratory findings and clinical signs. Nasreen Q Rose DO LAB_1 Final Resu [facility] [address] [place] [address], [facility] * US Pelvic Complete WO EV (02/08/2025 [...] Gallbladder is unremarkable. us Jagdeep Gurrola MD [facility] US Final Resu lt * Lactate 2 Hour (02/08/2025 8:27 AM CDT) [facility] Lactate, 2 Hour 1.6 0.5 - 2.0 mmol/L 02/08/2025 9:00 AM CDT [facility] Comment:Specimen grossly hem olyzed. Hemolysis may affect result. Blood Venipuncture / Unknown 02/08/2025 8:27 AM CDT 02/08/2025 8:35 AM CDT Narrative [facility] - 02/08/2025 9:00 AM CDT Reference range for healthy individuals when sepsis is not suspected is 0.5-2.2 mmol/L us Jagdeep Gurrola MD LAB_1 Final Resu lt [facility] [address] [place] [address], [facility] * CT Abd Pelvis W IV Cont [...] nonobstructing calyceal calculus in the right kidney. Jagdeep Gurrola MD RAD CT Final Resu lt * Extra Blue top tube (02/08/2025 6:32 AM CDT) [facility] Extra Blue Top Drawn Specimen will be held for 24 hours 02/08/2025 8:00 AM CDT [facility] Blood Venipuncture / Unknown 02/08/2025 6:32 AM CDT 02/08/2025 6:36 AM CDT Jagdeep Gurrola MD LAB_1 Final Resu lt Performing Organization Address [facility] de Phone Number [facility] [address] [place] [address] * B-Type Natriuretic Peptide (02/08/2025 6:31 AM CDT) [facility] B Type Natr. Peptide 11 <=99 pg/mL 02/08/2025 9:48 AM CDT [facility] Blood Venipuncture / Unknown 02/08/2025 6:31 AM CDT 02/08/2025 6:36 AM CDT Jagdeep Gurrola MD LAB_1 Final Resu lt Performing Organization Address [facility] Co de Phone Number [facility] [address] * hs-troponin i (no reflex) (02/08/2025 6:31 AM CDT) [facility] hs-troponin i 3 <=14 ng/L 02/08/2025 7:25 AM CDT [facility] Blood Venipuncture / Unknown 02/08/2025 6:31 AM CDT 02/08/2025 6:36 AM CDT Jagdeep Gurrola MD LAB_1 Final Resu lt Performing Organization Address [facility] Phone Number [facility] [address] [place] [address] * (ABNORMAL) Lactate Reflex Panel (02/08/2025 6:31 AM CDT) Pathologist [facility] Lactate 2.3(H) 0.5 - 2.0 mmol/L 02/08/2025 7:14 AM CDT [facility] Blood Venipuncture / Unknown 02/08/2025 6:31 AM CDT 02/08/2025 6:36 AM CDT Narrative [facility] - 02/08/2025 7:14 AM CDT Reference range for healthy individuals when sepsis is not suspected is 0.5-2.2 mmol/L Jagdeep Gurrola MD LAB_1 Final Resu lt Performing Organization Address [facility] Phone Number [facility] [address] [place] [address] * HCG, QUALitative, Serum (02/08/2025 6:31 AM CDT) Pathologist [facility] HCG, Serum Qual Negative Negative 02/08/2025 7:11 AM CDT [facility] Blood Venipuncture / Unknown 02/08/2025 6:31 AM CDT 02/08/2025 6:36 AM CDT Jagdeep Gurrola MD LAB_1 Final Resu lt Performing Organization Address [facility] Phone Number [facility] [address] [place] [address] * (ABNORMAL) Complete Blood Count-W/Diff (02/08/2025 6:31 AM CDT) WBC 16.9(H) 3.5 - 10.5 x10(9)/L 02/08/2025 6:51 AM CDT [facility] RBC 4.93 3.90 - 5.03 x10(12)/L 02/08/2025 6:51 AM CDT [facility] Hemoglobin 14.6 12.0 - 15.5 g/dL 02/08/2025 6:51 AM CDT [facility] HCT 42.7 34.9 - 44.5 % 02/08/2025 6:51 AM CDT [facility] MCV 86.6 80.0 - 100.0 fL 02/08/2025 6:51 AM CDT [facility] MCH 29.6 27.6 - 33.3 pg 02/08/2025 6:51 AM CDT [facility] MCHC 34.2 31.5 - 35.2 g/dL 02/08/2025 6:51 AM CDT [facility] RDW 12.2 11.9 - 15.5 % 02/08/2025 6:51 AM CDT [facility] Platelets 477(H) 150 - 450 x10(9)/L 02/08/2025 6:51 AM CDT [facility] Automated NRBC 0 <=0 /100 WBC 02/08/2025 6:51 AM CDT [facility] Neutrophil Absolute 14.3(H) 1.7 - 7.0 10(9)/L 02/08/2025 6:51 AM CDT [facility] Lymphocyte Absolute 1.6 1.0 - 4.8 10(9)/L 02/08/2025 6:51 AM CDT [facility] Monocyte Absolute 0.8 0.2 - 0.9 10(9)/L 02/08/2025 6:51 AM CDT [facility] Eosinophil Absolute 0.0 0.0 - 0.5 10(9)/L 02/08/2025 6:51 AM CDT [facility] Basophil Absolute 0.1 0.0 - 0.3 10(9)/L 02/08/2025 6:51 AM CDT [facility] Immature Granulocyte % 0.6(H) 0.0 - 0.5 % 02/08/2025 6:51 AM CDT [facility] Blood Venipuncture / Unknown 02/08/2025 6:31 AM CDT 02/08/2025 6:36 AM CDT Jagdeep Gurrola MD LAB_1 Final Resu lt Performing Organization Address [facility] de Phone Number [facility] [address] * Lipase (02/08/2025 6:31 AM CDT) Lipase 24 <=60 U/L 02/08/2025 7:08 AM CDT [facility] Blood Venipuncture / Unknown 02/08/2025 6:31 AM CDT 02/08/2025 6:36 AM CDT Jagdeep Gurrola MD LAB_1 Final Resu lt Performing Organization Address [facility] de Phone Number [facility] [address] * (ABNORMAL) Comp Metabolic Panel (02/08/2025 6:31 AM CDT) Sodium 133(L) 136 - 145 mmol/L 02/08/2025 7:08 AM CDT [facility] Potassium 3.7 3.5 - 5.1 mmol/L 02/08/2025 7:08 AM CDT [facility] Chloride 94(L) 98 - 109 mmol/L 02/08/2025 7:08 AM CDT [facility] CO2 24 20 - 29 mmol/L 02/08/2025 7:08 AM CDT [facility] Anion Gap 15 6 - 16 mmol/L 02/08/2025 7:08 AM CDT [facility] Calcium 10.9(H) 8.4 - 10.4 mg/dL 02/08/2025 7:08 AM CDT [facility] Comment:Low serum albumin ma y artificially lower total calcium, without impacting ionized calcium concentrations. If patient has or is at risk for hypoalbuminemia, consider ionized serum calcium to more accurately assess calcium status. BUN 15 7 - 26 mg/dL 02/08/2025 7:08 AM CDT [facility] Creatinine 0.95 0.55 - 1.02 mg/dL 02/08/2025 7:08 AM CDT [facility] Alkaline Phosphatase 98 40 - 150 U/L 02/08/2025 7:08 AM CDT [facility] AST (SGOT) 37 10 - 40 U/L 02/08/2025 7:08 AM CDT [facility] ALT (SGPT) 40 0 - 55 U/L 02/08/2025 7:08 AM CDT [facility] Bilirubin, Total 1.3(H) 0.2 - 1.2 mg/dL 02/08/2025 7:08 AM CDT [facility] Protein, Total 9.1(H) 6.4 - 8.3 g/dL 02/08/2025 7:08 AM CDT [facility] Albumin 4.8 3.5 - 5.0 g/dL 02/08/2025 7:08 AM CDT [facility] Glucose 221(H) 70 - 100 mg/dL 02/08/2025 7:08 AM CDT [facility] Comment:The given reference range is for the fasting state. Non-fasting reference range for glucose is 70 - 180 mg/dL. GFR, Estimated >60 >60 mL/min/1. 73m2 02/08/2025 7:08 AM CDT [facility] Blood Venipuncture / Unknown 02/08/2025 6:31 AM CDT 02/08/2025 6:36 AM CDT us Jagdeep Gurrola MD LAB_1 Final Resu lt [facility] [address] [place] [address], [facility] * ECG 12 Lead (02/08/2025 6:03 AM CDT) Ventricular Rate 104 BPM MUSE GHP Atrial Rate 104 BPM MUSE GHP P-R Interval 138 ms MUSE GHP QRS Duration 78 ms MUSE GHP QT 366 ms MUSE GHP QTC 481 ms MUSE GHP P [place] 60 degrees MUSE GHP R [place] 26 degrees MUSE GHP T [place] 29 degrees MUSE GHP 02/08/2025 6:03 AM CDT Narrative KORIN DENNIS - 02/08/2025 3:43 PM CDT Sinus tachycardia Low voltage QRS Borderline ECG No previous ECGs available Confirmed by Jagdeep Gurrola ([id number]) on 02/08/2025 3:43:34 PM Procedure Note Jagdeep Gurrola MD - 02/08/2025 Sinus tachycardia Low voltage QRS Borderline ECG No previous ECGs available Confirmed by Jagdeep Gurrola ([id number]) on 02/08/2025 3:43:34 PM us Jagdeep Gurrola MD PN ECG ORDERABLES Final Re sult [facility] [address] [place] [address] * (ABNORMAL) UA Conditional UC: Clean Catch (02/08/2025 5:52 AM CDT) Urine Culture Comment Urinalysis results do not meet criteria for urine culture reflex. 02/08/2025 8:10 AM CDT [facility] Urine Color [place] 02/08/2025 8:10 AM CDT [facility] Urine Clarity Extra Turbid(A) Clear 02/08/2025 8:10 AM CDT [facility] Specific [place], Urine 1.031(H) <1.030 02/08/2025 8:10 AM CDT [facility] PH Urine 5.5 5.0 - 8.0 02/08/2025 8:10 AM CDT [facility] Protein 100(A) Negative, 10 , 20 mg/dL 02/08/2025 8:10 AM CDT [facility] Glucose 200(A) Normal (Negative), 30 , 50 mg/dL 02/08/2025 8:10 AM CDT [facility] Ketones 10(A) Negative, Trace mg/dL 02/08/2025 8:10 AM CDT [facility] Urobilinogen 2.0(A) Normal (Negative) EU/dL 02/08/2025 8:10 AM CDT [facility] Bilirubin Negative Negative mg/dL 02/08/2025 8:10 AM CDT [facility] Blood, Urine (mg/dL) Negative Negative, 0.03 (Trace) 02/08/2025 8:10 AM CDT [facility] Nitrite Urine Negative Negative 02/08/2025 8:10 AM CDT [facility] Leukocyte Esterase 25 (Trace) Negative, 25 (Trace) AYLEEN/uL 02/08/2025 8:10 AM CDT [facility] Red Blood Cells 13(H) 0 - 3 /HPF 8:10 AM CDT [facility] White Blood Cells 3 0 - 5 /HPF 02/08/2025 8:10 AM CDT [facility] Bacteria Moderate(A) None Seen /HPF 02/08/2025 8:10 AM CDT [facility] Squamous Epithelial Cells Occasional None Seen, Occasional, Few /HPF 02/08/2025 8:10 AM CDT [facility] Hyaline Casts 133(H) <=2 /LPF 02/08/2025 8:10 AM CDT [facility] Crystals, Amorphous Present(A) None Seen 02/08/2025 8:10 AM CDT [facility] Crystals, Calcium Oxalate Present(A) None Seen 02/08/2025 8:10 AM CDT [facility] Source Clean Catch 02/08/2025 8:10 AM CDT [facility] Urine URINE SPECIMEN COLLECTION, CLEAN CATCH / Unknown Non-blood Collection / Unknown 02/08/2025 5:52 AM CDT 02/08/2025 5:56 AM CDT Narrative [facility] - 02/08/2025 8:10 AM CDT The qualitative interpretive guidance provided (e.g., small, moderate, large) is intended to aid in quantitative result interpretation. It is not itself an FDA-cleared test result. us Jagdeep Gurrola MD LAB_1 Final Resu lt [facility] [address] [place], [place] [address] * Extra Urine Tube (02/08/2025 5:52 AM CDT) Extra Urine Tube Specimen will be held for 24 hours 02/08/2025 7:00 AM CDT [facility] Urine URINE SPECIMEN COLLECTION, CLEAN CATCH / Unknown Non-blood Collection / Unknown 02/08/2025 5:52 AM CDT 02/08/2025 5:56 AM CDT us Jagdeep Gurrola MD LAB_1 Final Resu lt [facility] [address] documented in this encounter Visit Diagnoses Diagnosis Abdominal pain, generalized- Primary Uterine leiomyoma, unspecified location Lower abdominal pain Abdominal pain, other specified site Vomiting, unspecified vomiting type, unspecified whether nausea present ANTONIO (generalized anxiety disorder) ([facility]) Generalized anxiety disorder Dehydration Type 2 diabetes mellitus with foot ulcer, without long-term current use of insulin ([facility]) Post traumatic stress disorder (PTSD) ([facility]) Posttraumatic stress disorder ANTONIO (generalized anxiety disorder) ([facility]) Generalized anxiety disorder Obesity, Class II, BMI 35-39.9 Obesity, unspecified * Plan of Care - Smiley Lanier RN - 02/09/2025 1:30 PM CDT DISCHARGE O: Patient safely discharged to home. D: Patient is alert and oriented x 4. Pt up independently . Discharge criteria met. Vaccines addressed prior to discharge. Still having intermittent high anxiety episodes. Verbalizes that showers help with her anxiety. BP 116/72 Pulse 93 Temp 36.7 ??C (98.1 ??F) (Oral) Resp 18 SpO2 96% A: Discharge instructions and medications reviewed and given to patient. Prescriptions filled by [facility] pharmacy. Belongings checklist reviewed with patient and belongings sent. Care plan issues addressed and education record updated. R: Patient verbalizes understanding and teaches back discharge instructions. Patient discharged by:wheelchair with family. * Plan of Care - Husam See RN - 02/09/2025 6:58 AM CDT Shift update: No abd pain or nausea for most of the night; pt endorsed mild nausea/upset stomach in AM. PRN hydroxyzine given x1. Urine sample still needed. * Plan of Care - Kristy Yi RN - 02/08/2025 7:10 PM CDT ADMIT O: Admitted patient via cart from EC to bed # [id number]. D: Patient is alert and oriented x 4 See Admission Assessments. A: Discussed plan of care. See education record for admission education. Oriented to room. Call light in reach. Bed alarm: off R: Patient status: settled in room. Will monitor. * Plan of Care - Gil Anderson [facility] - 02/08/2025 3:23 PM CDT [facility] Medication History Note 1. Source(s) of Medication Information: Patient, Arnav/Dr. Garcia, Care Everywhere 2. Pertinent Information: Recent prior to admission medication changes: Medications added: All meds were added Medications deleted: None Medications changed: None Compliance considerations: Patient was a good historian 3. Outpatient Medications Marked as Taking: Outpatient Medications Marked as Taking for the 02/08/25 encounter (Hospital Encounter) Medication Sig Last Dose/Taking ARIPiprazole (ABILIFY) 2 MG tablet Take 1 Tablet (2 mg) by mouth daily. 02/08/2025 Morning atorvastatin (LIPITOR) 20 MG tablet Take 1 Tablet (20 mg) by mouth daily. 02/08/2025 Morning baclofen (LIORESAL) 10 MG tablet Take 1 Tablet (10 mg) by mouth two times daily as needed. As Directed-PRN calcium carbonate 600 MG tablet Take 2 Tablets (1,200 mg) by mouth daily. 02/07/2025 Evening DULoxetine (CYMBALTA) 60 MG delayed release capsule Take 1 Capsule (60 mg) by mouth daily. 02/08/2025Morning hydrOXYzine HCl (ATARAX) 25 MG tablet Take 1 Tablet (25 mg) by mouth three times a day. 02/08/2025 Morning Imipramine Pamoate (TOFRANIL-PM) 150 MG capsule Take 1 Capsule (150 mg) by mouth every evening. 02/07/2025 Evening lisinopril (ZESTRIL) 10 MG tablet Take 1 Tablet (10 mg) by mouth daily. 02/08/2025 Morning metoprolol tartrate (LOPRESSOR) 25 MG tablet Take 1 Tablet (25 mg) by mouth two times a day. 02/08/2025 Morning multivitamin with minerals tablet Take 1 Tablet by mouth daily. 02/08/2025 Morning omeprazole (PRILOSEC) 40 MG capsule Take 1 Capsule (40 mg) by mouth daily. Take 1 hour before a meal. 02/08/2025 Morning traMADol (ULTRAM) 50 MG tablet Take 1 Tablet (50 mg) by mouth every 6 hours as needed for Pain. As Directed-PRN Thank you. This list represents the best possible medication history available at the time of note completion and should be used as a guide in reconciling home medications for hospital use. ? * Triage Assessment Note - Aaron Brian RN - 02/08/2025 6:02 AM CDT Patient arrives from apartment in [facility]. Moved to [facility] on , suffering from lower abdominal pain and nausea for last 5 days. Pt has 1 bowel movement since . Pt has hx of anxiety. Patient provided 4mg zofran and 4mg resperidone en route by EMS. Pt has hx of bariatric surgery 1 yr ago (sleeve). documented in this encounter Administered Medications Inactive Administered Medications - up to 3 most recent administrations Medication Order MAR Action Action Date Dose Rate Site ARIPiprazole (ABILIFY) tablet 2 mg 2 mg, Oral, DAILY, First dose on Sat02/09/25 at 0800, Until Discontinued Given 02/09/2025 7:42 AM CDT 2 mg atorvastatin (LIPITOR) tablet 20 mg 20 mg, Oral, DAILY, First dose on Sat02/09/25 at 0800, Until Discontinued, This medication is a Category X medication. Therefore, it should not be given to patients. The patient's status must be verified before administering this medication. Given 02/09/2025 7:42 AM CDT 20 mg bisacodyl (DULCOLAX) rectal suppository 10 mg 10 mg, Rectal, DAILY PRN, Constipation, No stool in the last 3 days, Starting on Sat02/08/25 at 1852, Until Sat02/09/25 at 1534, Cumulative bowel medication orders. Administer based on medications available on DEC. If no stool in last day start Senna BID PRN no stool, if no stool in last 2 days add Miralax DAILY PRN no stool, if no stool in last 3 days add bisacodyl suppository DAILY PRN until patient stools. When patient stools, stop giving PRN meds and continue monitoring for bowel activity. When no stools X 1 day, begin regimen again until patient stools. Do not give if Absolute Neutrophil Count (ANC) is 1 k/cmm or less OR platelet count is 50 k/cmm or less. busPIRone (BUSPAR) tablet 10 mg 10 mg, Oral, BID, First dose on Sat02/09/25 at 1015, Until Discontinued Given 02/09/2025 11:39 AM CDT 10 mg dextrose 50% (D50) injection 25 g 25 g, Intravenous, Q15MIN PRN, Hypoglycemia, Per Hypoglycemia Treatment Protocol for age greater than 10 (adult and peds) AND weight 25 kg or greater, Starting on Sat02/09/25 at 0845, Per Hypoglycemic episode: Give 25g IV push, recheck POCT glucose in 15 minutes, if result less than 70 mg/dL, repeat treatment for hypoglycemia. After 2 doses notify Practitioner. May continue to treat while waiting for call back. dicyclomine (BENTYL) capsule 10 mg 10 mg, Oral, ONCE, On Sat02/08/25 at 0730, For 1 dose Given 02/08/2025 8:20 AM CDT 10 mg droPERidol (INAPSINE) injection 0.625 mg 0.625 mg, Intravenous, ONCE, On Sat02/08/25 at 1345, For 1 dose, Administer via slow IV push Given 02/08/2025 2:29 PM CDT 0.625 mg DULoxetine (CYMBALTA) delayed release capsule 60 mg 60 mg, Oral, DAILY, First dose on Sat02/09/25 at 0800, Until Discontinued, Swallow capsules whole. Do not chew, crush, dissolve, or open capsules. Given 02/09/2025 7:42 AM CDT 60 mg glucagon rDNA (diagnostic) (GLUCAGEN) injection 1 mg 1 mg, Intramuscular, Q15MIN PRN, Hypoglycemia, Per Hypoglycemia Treatment Protocol for age greater than 10 (adult and peds) AND weight 25 kg or greater, Starting on Sat02/09/25 at 0845, Until Sat02/09/25 at 1534, Per Hypoglycemic episode: Prior to administration, reconstitute glucagon vial with 1 mL of provided diluent or 1 mL of Sterile Water for Injection to make a 1 mg/1 mL solution. Give 1 mg IM, turn patient on side to prevent aspiration if vomits. If appropriate, establish IV access STAT. Recheck POCT glucose in 15 minutes, if result less than 70 mg/dL and still no IV access, may repeat 1 mg IM x 1. Recheck POCT glucose in 15 minutes, if result is less than 70 mg/dL notify Practitioner. glucose (GLUTOSE) 40 % oral gel 15 g of glucose 15 g of glucose, Oral, Q15MIN PRN, Hypoglycemia, Per Hypoglycemia Treatment Protocol for age greater than 10 (adult and peds) AND weight 25 kg or greater, Starting on Sat02/09/25 at 0845, Until Sat02/09/25 at 1534, Per Hypoglycemia Episode: Give 15g orally, recheck POCT glucose in 15 minutes, if result less than 70 mg/dL, repeat treatment for hypoglycemia. After 2 doses notify Practitioner. May continue to treat while waiting for call back. 37.5g tube delivers 15g of glucose HYDROcodone-acetaminophen (NORCO) 5-325 MG per tablet 1 Tablet 1 Tablet, Oral, ONCE, On Sat02/08/25 at 1000, For 1 dose Given 02/08/2025 9:35 AM CDT 1 Tablet hydrOXYzine pamoate (VISTARIL) capsule 25 mg 25 mg, Oral, TID PRN, Anxiety, Starting on Sat02/08/25 at 1852, Until Sat02/09/25 at 0846 Given 02/09/2025 7:50 AM CDT 25 mg Given 02/09/2025 2:02 AM CDT 25 mg hydrOXYzine pamoate (VISTARIL) capsule 25 mg 25 mg, Oral, Q6H PRN, Anxiety, Starting on Sat02/09/25 at 0846, Until Sat02/09/25 at 1534 insulin lispro (HUMALOG; ADMELOG) injection vial 1-4 Units 1-4 Units, Subcutaneous, HS, First dose on Sat02/09/25 at 2200, Correction Scale Insulin: Blood Sugar 201-250 give 1 units Blood Sugar 251-300 give 2 units Blood Sugar 301-350 give 3 units Blood Sugar greater than 350 give 4 units If Blood Sugar still greater than 350 after next POCT Glucose, notify Practitioner insulin lispro (HUMALOG; ADMELOG) injection vial 1-5 Units 1-5 Units, Subcutaneous, TID WITH MEALS, First dose on Sat02/09/25 at 1200, Correction Scale Insulin: Can be given with carb based insulin OR if patient is not eating or NPO, give within 15 minutes of POCT glucose. Blood Sugar 150 - 200 give 1 units Blood Sugar 201-250 give 2 units Blood Sugar 251-300 give 3 units Blood Sugar 301-350 give 4 units Blood Sugar greater than 350 give 5 units If Blood Sugar still greater than 350 after next POCT Glucose, notify Practitioner iohexol (OMNIPAQUE 350) 350 MG/ML injection 100 mL 100 mL, Intravenous, ONCE, On Sat02/08/25 at 0800, For 1 dose, Radiology Given 02/08/2025 7:43 AM CDT 100 mL ketorolac (TORADOL) injection 15 mg 15 mg, Intravenous, Q6H PRN, Pain, Moderate Pain (pain score 5-7), Starting on Sat02/08/25 at 1426, Until Sat02/09/25 at 1534, For 48 hours Given 02/09/2025 7:45 AM CDT 15 mg Given 02/08/2025 3:00 PM CDT 15 mg lactated ringers IV bolus 1,000 mL 1,000 mL, Intravenous, Administer over 1 Hours, ONCE, On Sat02/08/25 at 0730, For 1 dose Started 02/08/2025 8:21 AM CDT 1,000 mL lactated ringers IV bolus 1,000 mL 1,000 mL, Intravenous, Administer over 1 Hours, ONCE, On Sat02/08/25 at 0930, For 1 dose Started 02/08/2025 12:06 PM CDT 1,000 mL lisinopril (ZESTRIL) tablet 10 mg 10 mg, Oral, DAILY, First dose on Sat02/09/25 at 0800, Until Discontinued Given 02/09/2025 7:42 AM CDT 10 mg metoprolol tartrate (LOPRESSOR) tablet 25 mg 25 mg, Oral, BID, First dose on Sat02/08/25 at 2000, Until Discontinued, Take with food Given 02/09/2025 7:42 AM CDT 25 mg Given 02/08/2025 7:51 PM CDT 25 mg ondansetron (ZOFRAN) injection 4 mg 4 mg, Intravenous, ONCE, On Sat02/08/25 at 0730, For 1 dose, For nausea or vomiting Given 02/08/2025 8:21 AM CDT 4 mg ondansetron (ZOFRAN) injection 4 mg 4 mg, Intravenous, ONCE, On Sat02/08/25 at 1045, For 1 dose, For nausea or vomiting Given 02/08/2025 10:34 AM CDT 4 mg ondansetron (ZOFRAN) injection 4 mg 4 mg, Intravenous, Q6H PRN, Nausea, Vomiting, Starting on Sat02/08/25 at 2208, Until Sat02/09/[address] (PROTONIX) tablet 40 mg 40 mg, Oral, DAILY AT 0600, First dose on Sat02/09/25 at 0600, Until Discontinued Given 02/09/2025 6:36 AM CDT 40 mg polyethylene glycol (MIRALAX) oral powder 17 g 17 g, Oral, DAILY PRN, Constipation, No stool in the last 2 days, Starting on Sat02/08/25 at 1852, Until Sat02/09/25 at 1534, Cumulative bowel medication orders. Administer based on medications available on DEC. If no stool in last day start Senna BID PRN no stool, if no stool in last 2 days add Miralax DAILY PRN no stool, if no stool in last 3 days add bisacodyl suppository DAILY PRN until patient stools. When patient stools, stop giving PRN meds and continue monitoring for bowel activity. When no stools X 1 day, begin regimen again until patient stools. prochlorperazine (COMPAZINE) injection 10 mg 10 mg, Intravenous, Q6H PRN, Nausea, Vomiting, Starting on Sat02/08/25 at 2208, Until Sat02/09/25 at 1534 senna (SENOKOT) tablet 2 Tablet 2 Tablet, Oral, BID PRN, Constipation, No stool in the last day, Starting on Sat02/08/25 at 1852, Until Sat02/09/25 at 1534, Cumulative bowel medication orders. Administer based on medications available on DEC. If no stool in last day start Senna BID PRN no stool, if no stool in last 2 days add Miralax DAILY PRN no stool, if no stool in last 3 days add bisacodyl suppository DAILY PRN until patient stools. When patient stools, stop giving PRN meds and continue monitoring for bowel activity. When no stools X 1 day, begin regimen again until patient stools. sodium chloride 0.9% 0.9 % injection - ADS Override Pull Starting on Sat02/08/25 at 1940, Until Sat02/08/25 at 1952, For 1 dose, Kristy Yi: cabinet override Given 02/08/2025 7:52 PM CDT 10 mL sodium chloride 0.9% injection 10 mL 10 mL, Intravenous, ONCE, On Sat02/08/25 at 0800, For 1 dose, Radiology Given 02/08/2025 7:43 AM CDT 10 mL sodium chloride 0.9% with KCL 20 mEq/L infusion Intravenous, at 100 mL/hr, CONTINUOUS, Starting on Sat02/08/25 at 1945, For 10 hours, 1 liter Started 02/08/2025 7:53 PM CDT 100 mL/hr documented in this encounter Active and Recently Administered Medications Times are shown in CDT. Scheduled Medication Order 02/07/2025 02/08/2025 02/09/2025 ARIPiprazole (ABILIFY) tablet 2 mg 2 mg, Oral, DAILY, First dose on Sat02/09/25 at 0800, Until Discontinued 0742 (Given - Provid er: Smiley Lanier RN) atorvastatin (LIPITOR) tablet 20 mg 20 mg, Oral, DAILY, First dose on Sat02/09/25 at 0800, Until Discontinued, This medication is a Category X medication. Therefore, it should not be given to patients. The patient's status must be verified before administering this medication. 0742 (Given - Provid er: Smiley Lanier RN) busPIRone (BUSPAR) tablet 10 mg 10 mg, Oral, BID, First dose on Sat02/09/25 at 1015, Until Discontinued 1139 (Given - Provid er: Simley Lanier RN) dicyclomine (BENTYL) capsule 10 mg (COMPLETED) 10 mg, Oral, ONCE, On Sat02/08/25 at 0730, For 1 dose 0820 (Given - Provider: Simran Silverman RN) droPERidol (INAPSINE) injection 0.625 mg (COMPLETED) 0.625 mg, Intravenous, ONCE, On Sat02/08/25 at 1345, For 1 dose, Administer via slow IV push 1429 (Given - Provider: Berta Perry RN) DULoxetine (CYMBALTA) delayed release capsule 60 mg 60 mg, Oral, DAILY, First dose on Sat02/09/25 at 0800, Until Discontinued, Swallow capsules whole. Do not chew, crush, dissolve, or open capsules. 0742 (Given - Provid er: Smiley Lanier RN) HYDROcodone-acetaminophen (NORCO) 5-325 MG per tablet 1 Tablet (COMPLETED) 1 Tablet, Oral, ONCE, On Sat02/08/25 at 1000, For 1 dose 0935 (Given - Provider: Simran Silverman RN) insulin lispro (HUMALOG; ADMELOG) injection vial 1-4 Units(Linked Group 1) 1-4 Units, Subcutaneous, HS, First dose on Sat02/09/25 at 2200, Correction Scale Insulin: Blood Sugar 201-250 give 1 units Blood Sugar 251-300 give 2 units Blood Sugar 301-350 give 3 units Blood Sugar greater than 350 give 4 units If Blood Sugar still greater than 350 after next POCT Glucose, notify Practitioner insulin lispro (HUMALOG; ADMELOG) injection vial 1-5 Units(Linked Group 1) 1-5 Units, Subcutaneous, TID WITH MEALS, First dose on Sat02/09/25 at 1200, Correction Scale Insulin: Can be given with carb based insulin OR if patient is not eating or NPO, give within 15 minutes of POCT glucose. Blood Sugar 150 - 200 give 1 units Blood Sugar 201-250 give 2 units Blood Sugar 251-300 give 3 units Blood Sugar 301-350 give 4 units Blood Sugar greater than 350 give 5 units If Blood Sugar still greater than 350 after next POCT Glucose, notify Practitioner 1326 (Not Given - Provider: Smiley Lanier RN - Reason: Patient/family refused) iohexol (OMNIPAQUE 350) 350 MG/ML injection 100 mL (COMPLETED) 100 mL, Intravenous, ONCE, On Sat02/08/25 at 0800, For 1 dose, Radiology 0743 (Given - Provider: Torri Mays - Comment: [id number]) lactated ringers IV bolus 1,000 mL (COMPLETED) 1,000 mL, Intravenous, Administer over 1 Hours, ONCE, On Sat02/08/25 at 0730, For 1 dose 0821 (Started - Provider: Simran Silverman RN)1106 (Infused - Provider: Simran Silverman RN) lactated ringers IV bolus 1,000 mL (COMPLETED) 1,000 mL, Intravenous, Administer over 1 Hours, ONCE, On Sat02/08/25 at 0930, For 1 dose 1206 (Started - Provider: Simran Silverman RN - Comment: Patient was off the UNit for US)1403 (Infused - Provider: Rodney Sandoval RN) lisinopril (ZESTRIL) tablet 10 mg 10 mg, Oral, DAILY, First dose on Sat02/09/25 at 0800, Until Discontinued 0742 (Given - Provid er: Smiley Lanier RN) metoprolol tartrate (LOPRESSOR) tablet 25 mg 25 mg, Oral, BID, First dose on Sat02/08/25 at 2000, Until Discontinued, Take with food 195 (Given - Provider: Kristy Yi RN) 0742 (Given - Provider: Smiley Lanier RN) ondansetron (ZOFRAN) injection 4 mg (COMPLETED) 4 mg, Intravenous, ONCE, On Sat02/08/25 at 0730, For 1 dose, For nausea or vomiting 0821 (Given - Provider: Simran Silverman RN) ondansetron (ZOFRAN) injection 4 mg (COMPLETED) 4 mg, Intravenous, ONCE, On Sat02/08/25 at 1045, For 1 dose, For nausea or vomiting 1034 (Given - Provider: Lopez Lester, KEVYN) pantoprazole DR (PROTONIX) tablet 40 mg 40 mg, Oral, DAILY AT 0600, First dose on Sat02/09/25 at 0600, Until Discontinued 0636 (Given - Provid er: Husam See RN) sodium chloride 0.9% injection 10 mL (COMPLETED) 10 mL, Intravenous, ONCE, On Sat02/08/25 at 0800, For 1 dose, Radiology 0743 (Given - Provider: Torri Mays) Continuous Medication Order 02/07/2025 02/08/2025 02/09/2025 sodium chloride 0.9% with KCL 20 mEq/L infusion () Intravenous, at 100 mL/hr, CONTINUOUS, Starting on Sat02/08/25 at 1945, For 10 hours, 1 liter 1953 (Started - Provider: Kristy Yi RN) 0723 (Infused - Provider: Smiley Lanier RN - Comment: [Order ends at this time. Document the following action when infusion is complete: Infused]) PRN Medication Order 02/07/2025 02/08/2025 02/09/2025 benzocaine-menthol (Chloraseptic) lozenge 1 Lozenge 1 Lozenge, Oral, Q2H PRN, Throat Pain, Starting on Sat02/08/25 at 1852, Until Sat02/09/25 at 1534 bisacodyl (DULCOLAX) rectal suppository 10 mg(Linked Group 2) 10 mg, Rectal, DAILY PRN, Constipation, No stool in the last 3 days, Starting on Sat02/08/25 at 1852, Until Sat02/09/25 at 1534, Cumulative bowel medication orders. Administer based on medications available on DEC. If no stool in last day start Senna BID PRN no stool, if no stool in last 2 days add Miralax DAILY PRN no stool, if no stool in last 3 days add bisacodyl suppository DAILY PRN until patient stools. When patient stools, stop giving PRN meds and continue monitoring for bowel activity. When no stools X 1 day, begin regimen again until patient stools. Do not give if Absolute Neutrophil Count (ANC) is 1 k/cmm or less OR platelet count is 50 k/cmm or less. calcium carbonate (TUMS) chewable tablet 500 mg 500 mg, Oral, Q4H PRN, Heartburn, Upset Stomach, Starting on Sat02/08/25 at 1852, Until Sat02/09/25 at 1534, Each tablet provides 200 mg elemental calcium dextrose 50% (D50) injection 25 g(Linked Group 3) 25 g, Intravenous, Q15MIN PRN, Hypoglycemia, Per Hypoglycemia Treatment Protocol for age greater than 10 (adult and peds) AND weight 25 kg or greater, Starting on Sat02/09/25 at 0845, Per Hypoglycemic episode: Give 25g IV push, recheck POCT glucose in 15 minutes, if result less than 70 mg/dL, repeat treatment for hypoglycemia. After 2 doses notify Practitioner. May continue to treat while waiting for call back. glucagon rDNA (diagnostic) (GLUCAGEN) injection 1 mg(Linked Group 3) 1 mg, Intramuscular, Q15MIN PRN, Hypoglycemia, Per Hypoglycemia Treatment Protocol for age greater than 10 (adult and peds) AND weight 25 kg or greater, Starting on Sat02/09/25 at 0845, Until Sat02/09/25 at 1534, Per Hypoglycemic episode: Prior to administration, reconstitute glucagon vial with 1 mL of provided diluent or 1 mL of Sterile Water for Injection to make a 1 mg/1 mL solution. Give 1 mg IM, turn patient on side to prevent aspiration if vomits. If appropriate, establish IV access STAT. Recheck POCT glucose in 15 minutes, if result less than 70 mg/dL and still no IV access, may repeat 1 mg IM x 1. Recheck POCT glucose in 15 minutes, if result is less than 70 mg/dL notify Practitioner. glucose (GLUTOSE) 40 % oral gel 15 g of glucose(Linked Group 3) 15 g of glucose, Oral, Q15MIN PRN, Hypoglycemia, Per Hypoglycemia Treatment Protocol for age greater than 10 (adult and peds) AND weight 25 kg or greater, Starting on Sat02/09/25 at 0845, Until Sat02/09/25 at 1534, Per Hypoglycemia Episode: Give 15g orally, recheck POCT glucose in 15 minutes, if result less than 70 mg/dL, repeat treatment for hypoglycemia. After 2 doses notify Practitioner. May continue to treat while waiting for call back. 37.5g tube delivers 15g of glucose guaiFENesin (ROBITUSSIN) oral liquid 10 mL 10 mL, Oral, Q4H PRN, Cough, Starting on Sat02/08/25 at 1852, Until Sat02/09/25 at 1534 hydrOXYzine pamoate (VISTARIL) capsule 25 mg (CANCELED) 25 mg, Oral, TID PRN, Anxiety, Starting on Sat02/08/25 at 1852, Until Sat02/09/25 at 0846 0202 (Given - Provid er: Husam See RN)0750 (Given - Provider: Smiley Lanier RN) hydrOXYzine pamoate (VISTARIL) capsule 25 mg 25 mg, Oral, Q6H PRN, Anxiety, Starting on Sat02/09/25 at 0846, Until Sat02/09/25 at 1534 ketorolac (TORADOL) injection 15 mg 15 mg, Intravenous, Q6H PRN, Pain, Moderate Pain (pain score 5-7), Starting on Sat02/08/25 at 1426, Until Sat02/09/25 at 1534, For 48 hours 1500 (Given - Provider: Berta Perry RN) 0745 (Given - Provider: Smiley Lanier RN) lidocaine (UROJET) 2 % gel prefilled syringe Urethral, PRN WITH PROCEDURES, Local Anesthetic, Prior to intermittent straight cath or indwelling urethral catheter placement for pain relief and/or lubrication, Starting on Sat02/08/25 at 1852, Administer 3-5 mL for females and 5-10mL for males as needed for anesthetic effect prior to procedure Strongly recommend utilizing Coud tipped catheter and PRN Urojet for patients with a prostate age 50 and older. melatonin tablet 3 mg 3 mg, Oral, HS PRN, Other, Mild insomnia, Starting on Sat02/08/25 at 1852, Until Sat02/09/25 at 1534 nystatin (MYCOSTATIN) 316751 UNIT/GM topical powder Topical, BID PRN, Other, for rash due to yeast, Starting on Sat02/08/25 at 1852, Apply topically to affected area. Hazardous waste disposal required. ondansetron (ZOFRAN) injection 4 mg 4 mg, Intravenous, Q6H PRN, Nausea, Vomiting, Starting on Sat02/08/25 at 2208, Until Sat02/09/25 at 1534 polyethyl-propylene glycol (SYSTANE) 0.4-0.3 % ophthalmic solution 1 Drop 1 Drop, Both Eyes, Q1H PRN, Dry Eyes, Itchy Eyes, Starting on Sat02/08/25 at 1852, Until Sat02/09/25 at 1534 polyethylene glycol (MIRALAX) oral powder 17 g(Linked Group 2) 17 g, Oral, DAILY PRN, Constipation, No stool in the last 2 days, Starting on Sat02/08/25 at 1852, Until Sat02/09/25 at 1534, Cumulative bowel medication orders. Administer based on medications available on DEC. If no stool in last day start Senna BID PRN no stool, if no stool in last 2 days add Miralax DAILY PRN no stool, if no stool in last 3 days add bisacodyl suppository DAILY PRN until patient stools. When patient stools, stop giving PRN meds and continue monitoring for bowel activity. When no stools X 1 day, begin regimen again until patient stools. prochlorperazine (COMPAZINE) injection 10 mg 10 mg, Intravenous, Q6H PRN, Nausea, Vomiting, Starting on Sat02/08/25 at 2208, Until Sat02/09/25 at 1534 senna (SENOKOT) tablet 2 Tablet(Linked Group 2) 2 Tablet, Oral, BID PRN, Constipation, No stool in the last day, Starting on Sat02/08/25 at 1852, Until Sat02/09/25 at 1534, Cumulative bowel medication orders. Administer based on medications available on DEC. If no stool in last day start Senna BID PRN no stool, if no stool in last 2 days add Miralax DAILY PRN no stool, if no stool in last 3 days add bisacodyl suppository DAILY PRN until patient stools. When patient stools, stop giving PRN meds and continue monitoring for bowel activity. When no stools X 1 day, begin regimen again until patient stools. sodium chloride (OCEAN) 0.65 % nasal solution 1 [place] 1 [place], Both Nostrils, Q2H PRN, Dry Nose, Starting on Sat02/08/25 at 1852, Until Sat02/09/25 at 1534 No Frequency Medication Order 02/07/2025 02/08/2025 02/09/2025 sodium chloride 0.9% 0.9 % injection - ADS Override Pull (COMPLETED) Starting on Sat02/08/25 at 1940, Until Sat02/08/25 at 195, For 1 dose, Kristy Yi: cabinet override 1951 (Given - Provider: Kristy Yi, KEVYN) Linked Groups Order Group 1: insulin lispro (HUMALOG; ADMELOG) injection vial 1-5 UnitsJump to med 1-5 Units, Subcutaneous, TID WITH MEALS, First dose on Sat02/09/25 at 1200, Correction Scale Insulin: Can be given with carb based insulin OR if patient is not eating or NPO, give within 15 minutes of POCT glucose. Blood Sugar 150 - 200 give 1 units Blood Sugar 201-250 give 2 units Blood Sugar 251-300 give 3 units Blood Sugar 301-350 give 4 units Blood Sugar greater than 350 give 5 units If Blood Sugar still greater than 350 after next POCT Glucose, notify Practitioner And insulin lispro (HUMALOG; ADMELOG) injection vial 1-4 UnitsJump to med 1-4 Units, Subcutaneous, HS, First dose on Sat02/09/25 at 2200, Correction Scale Insulin: Blood Sugar 201-250 give 1 units Blood Sugar 251-300 give 2 units Blood Sugar 301-350 give 3 units Blood Sugar greater than 350 give 4 units If Blood Sugar still greater than 350 after next POCT Glucose, notify Practitioner Group 2: senna (SENOKOT) tablet 2 TabletJump to med 2 Tablet, Oral, BID PRN, Constipation, No stool in the last day, Starting on Sat02/08/25 at 1852, Until Sat02/09/25 at 1534, Cumulative bowel medication orders. Administer based on medications available on DEC. If no stool in last day start Senna BID PRN no stool, if no stool in last 2 days add Miralax DAILY PRN no stool, if no stool in last 3 days add bisacodyl suppository DAILY PRN until patient stools. When patient stools, stop giving PRN meds and continue monitoring for bowel activity. When no stools X 1 day, begin regimen again until patient stools. And polyethylene glycol (MIRALAX) oral powder 17 gJump to med 17 g, Oral, DAILY PRN, Constipation, No stool in the last 2 days, Starting on Sat02/08/25 at 1852, Until Sat02/09/25 at 1534, Cumulative bowel medication orders. Administer based on medications available on DEC. If no stool in last day start Senna BID PRN no stool, if no stool in last 2 days add Miralax DAILY PRN no stool, if no stool in last 3 days add bisacodyl suppository DAILY PRN until patient stools. When patient stools, stop giving PRN meds and continue monitoring for bowel activity. When no stools X 1 day, begin regimen again until patient stools. And bisacodyl (DULCOLAX) rectal suppository 10 mgJump to med 10 mg, Rectal, DAILY PRN, Constipation, No stool in the last 3 days, Starting on Sat02/08/25 at 1852, Until Sat02/09/25 at 1534, Cumulative bowel medication orders. Administer based on medications available on DEC. If no stool in last day start Senna BID PRN no stool, if no stool in last 2 days add Miralax DAILY PRN no stool, if no stool in last 3 days add bisacodyl suppository DAILY PRN until patient stools. When patient stools, stop giving PRN meds and continue monitoring for bowel activity. When no stools X 1 day, begin regimen again until patient stools. Do not give if Absolute Neutrophil Count (ANC) is 1 k/cmm or less OR platelet count is 50 k/cmm or less. Group 3: glucose (GLUTOSE) 40 % oral gel 15 g of glucoseJump to med 15 g of glucose, Oral, Q15MIN PRN, Hypoglycemia, Per Hypoglycemia Treatment Protocol for age greater than 10 (adult and peds) AND weight 25 kg or greater, Starting on Sat02/09/25 at 0845, Until Sat02/09/25 at 1534, Per Hypoglycemia Episode: Give 15g orally, recheck POCT glucose in 15 minutes, if result less than 70 mg/dL, repeat treatment for hypoglycemia. After 2 doses notify Practitioner. May continue to treat while waiting for call back. 37.5g tube delivers 15g of glucose Or dextrose 50% (D50) injection 25 gJump to med 25 g, Intravenous, Q15MIN PRN, Hypoglycemia, Per Hypoglycemia Treatment Protocol for age greater than 10 (adult and peds) AND weight 25 kg or greater, Starting on Sat02/09/25 at 0845, Per Hypoglycemic episode: Give 25g IV push, recheck POCT glucose in 15 minutes, if result less than 70 mg/dL, repeat treatment for hypoglycemia. After 2 doses notify Practitioner. May continue to treat while waiting for call back. Or glucagon rDNA (diagnostic) (GLUCAGEN) injection 1 mgJump to med 1 mg, Intramuscular, Q15MIN PRN, Hypoglycemia, Per Hypoglycemia Treatment Protocol for age greater than 10 (adult and peds) AND weight 25 kg or greater, Starting on Sat02/09/25 at 0845, Until Sat02/09/25 at 1534, Per Hypoglycemic episode: Prior to administration, reconstitute glucagon vial with 1 mL of provided diluent or 1 mL of Sterile Water for Injection to make a 1 mg/1 mL solution. Give 1 mg IM, turn patient on side to prevent aspiration if vomits. If appropriate, establish IV access STAT. Recheck POCT glucose in 15 minutes, if result less than 70 mg/dL and still no IV access, may repeat 1 mg IM x 1. Recheck POCT glucose in 15 minutes, if result is less than 70 mg/dL notify Practitioner. documented in this encounter Care Teams Dist[employer] Worker General Relationship Specialty Start Date End Date Needs Pcp, [place] [address] PCP - General 02/08/25 documented as of this encounter
--- OUTSIDE RECORDS SUMMARY | 2025-02-17 16:41 | XMS_ITS | Encounter Summary ---
[facility] Address [address] [address] Care Team Providers Care Administrative Manager Name Role Phone Needs Pcp, Assignment Primary Care Provider [phone] Reason for Visit * Reason Comments ANXIETY Encounter Details Date Type Department Care Team (Late st Contact Info) Description 02/14/2025 Nurse Triage [facility] [address] [place] [address] Needs Pcp, [place] [address] ANXIETY Social History Tobacco Use Types Packs/Day Years [...] as of this encounter Nursing Notes * Isha Greenwood, RN - 02/14/2025 10:13 AM CDT Situation/Background (brief explanation of current symptoms/situation): Patient reports anxiety still severe, feels constantly panicky, feeling of fear and doom. In to hospital for this anxiety with vomiting, discharged 5 days ago. Vomiting is better, much more infrequent, but anxiety has not improved. Patient is not able to sleep, exhausted and fearful. She is taking her hydroxyzine TID, but it's not helping at all, buspar has not kicked in yet, though she is taking it BID as ordered. Reviewed pertinent medical history (as relates to the call): Yes Reviewed pertinent medications (as relates to the call): NA Reason for Disposition Patient sounds very upset or troubled to the triager Protocols used: Anxiety and Panic [id number] Recent hospital evaluation reassuring for no known physical causes, so recommend UC now/today as unable to find video consult in primary care. Patient agrees. Assisted with [facility]. documented in this encounter Plan of Treatment Upcoming Encounters Date Type Department Care Team (Late st Contact Info) Description 02/22/2025 8:00 AM CDT Appointment [place] [address] [facility] [address] [facility] [place] [address] Arlene Hines, [employer], [employer] [address] [place] [address] documented as of this encounter Visit Diagnoses Not on filedocumented in this encounter Care Teams Administrative Manager Relationship Specialty Start Date End Date Needs Pcp, Assignment [place], [place] [address] PCP - General 02/08/25 documented as of this encounter
[2025-02-17 16:44] LABS: Chloride* 91 mmol/L (96-114); Potassium* 3.3 mmol/L (3.6-5.1); Sodium* 132 mmol/L (135-149)
[2025-02-17 16:47] LABS: Anion Gap 10 mEq/L (7-15); Blood Urea Nitrogen* 23 mg/dL (5-24); Calcium* 9.9 mg/dL (8.4-10.6); Carbon Dioxide* 31 mmol/L (20-32); Creatinine* 1.2 mg/dL (0.5-1.5); Est. Creatinine Clearance* 59.09; Estimated Glomerular Filt Rate 57 ml/min; Glucose* 175 mg/dL (60-115)
[2025-02-17] MEDS: ONDANSETRON 2 MG/ML inj 4 MG IVP (17:44)
[2025-02-17] MEDS: LORazepam 1 MG TABLET PO (17:44)
[2025-02-17] MEDS: OLANZapine 5 MG/ML inj IVP (17:44)
[2025-02-17] MEDS: LACTATED RINGERS 1000 ML 1,000 ML IV (17:44)
[2025-02-17] MEDS: 0.9 % SODIUM CHLORIDE 1000 ml 1,000 ML IV (17:44)
[2025-02-17] MEDS: GI COCKTAIL (VISC LIDO/ANTACID) 30 ML PO (18:50)
[2025-02-17] MEDS: LORazepam 0.5 MG TABLET PO (18:51)
[2025-02-17] MEDS: KETOROLAC 30 MG/ML inj IVP (18:52)
[2025-02-17 19:31] VITALS: BP 118/84; PULSE 85; RESP 20; TEMP 36.7; O2SAT 98
[2025-02-17 19:32] VITALS: BP 118/84; PULSE 85; RESP 20; TEMP 36.7
== END 2025-02-17 19:32 | disposition home or self-care (01) ==
PROVIDERS: Emergency Provider Family Medicine
DX: R11.10 Vomiting, unspecified (principal); R10.9 Unspecified abdominal pain
CPT/HCPCS: 36415; 80048; 83735; 96361; 96374; 96375; 99284; A9270; J1885; J2405; J7030; J7120